=== PATIENT | male | born 1985 | race Caucasian/White ===

== ENCOUNTER 2016-09-14 15:34 | Emergency (ER) | payer OTHER ==
[~2016-09-14] VITALS: Ht 170.2 cm; Wt 65.0 kg
[~2016-09-14 15:34] MED LIST: CELE200C PO
[2016-09-14 15:37] VITALS: BP 123/72; PULSE 75; RESP 14; TEMP 98.5; O2SAT 99
--- NOTE | 2016-09-14 15:50 | PD ---
Physical Exam Time Seen by Provider: 15:49 Narrative 31yo M c/o rash x2 days. Malachi fever, vomiting. VS reviewed. Patient seen in triage. Awaiting bed placement. Data Data Last Documented VS Vital Signs Date Time Temp Pulse Resp B/P Pulse Ox O2 Delivery O2 Flow Rate FiO2 09/14/16 15:37 98.5 75 14 123/72 99 MDM Supervised Visit with RAFY: Josseline Ashley September 14, 2016 15:50
--- NOTE | 2016-09-14 17:30 | PD ---
HPI . skin rash for quite some time Chief Complaint: Skin Problem Time Seen by Provider: 17:30 Travel History International Travel<30 days: No Contact w/Intl Traveler<30days: No Traveled to known affect area: No History of Present Illness HPI 31-year-old male here with complaints of skin rash for several months to years. Patient says that he intermittently contracts impetigo and he has been treated and has not improved. He was last here in 2016, he tells me that he has since gone to another hospital twice. He says that he was treated by a "retard," and the rash keeps coming back especially after having rough sex. He admits to intermittent itching and says the lesions crust over. He denies any fever or chills. He says he has paid this hospital $900 and he needs to be fixed. He has failed bactrim and doxy. He is accompanied by his significant other. PFSH Past Medical History Hx Anticoagulant Therapy: No Asthma: Yes Cardiovascular Problems: No Chemotherapy: No Cerebrovascular Accident: No Diabetes: No Respiratory: No Social History Alcohol Use: Yes (occassionally) Tobacco Use: No Substance Use: Yes (jean pierre 30mg x2 ; on methadone now) Allergies-Medications (Allergen,Severity, Reaction): Coded Allergies: No Known Allergies (Unverified , 12/31/15) Reported Meds & Prescriptions Reported Meds & Active Scripts Active Bactroban Topical (Mupirocin) 2% Oint 1 Appl TOPICAL BID 5 Days Clindamycin (Clindamycin HCl) 300 Mg Cap 300 Mg PO TID Celebrex (Celecoxib) 200 Mg Cap 200 Mg PO DAILY Review of Systems General / Constitutional: No: Fever Eyes: No: Visual changes HENT: No: Headaches Cardiovascular: No: Chest Pain or Discomfort Respiratory: No: Shortness of Breath Gastrointestinal: No: Abdominal Pain Genitourinary: No: Dysuria Musculoskeletal: No: Pain Skin: Positive Rash, Positive Itching Neurologic: No: Weakness Psychiatric: No: Depression Endocrine: No: Polydipsia Hematologic/Lymphatic: No: Easy Bruising Physical Exam Narrative GENERAL: AAO x 3, no acute distress, Well-nourished, well-developed patient. SKIN: Warm and dry. No visible rashes or bruising. papule scattered on body, left arm > Right, small papules on face, small yellow crust on lesion on face, papules are erythematous, no evidence of abscess formation HEAD: Normocephalic and atraumatic. EYES: No scleral icterus. No injection or drainage. ENT: No nasal drainage noted. Mucous membranes pink. Airway patent. NECK: Supple, trachea midline. No JVD. CARDIOVASCULAR: Regular rate and rhythm without murmurs, gallops, or rubs. RESPIRATORY: Breath sounds equal bilaterally. No accessory muscle use. No rhonchi or rales. GASTROINTESTINAL: Visual inspection normal EXTREMITIES: No cyanosis or edema. BACK: Nontender without obvious deformity. No CVA tenderness. PSYCH: AAO x 3, normal affect. Data Data Last Documented VS Vital Signs Date Time Temp Pulse Resp B/P Pulse Ox O2 Delivery O2 Flow Rate FiO2 09/14/16 15:37 98.5 75 14 123/72 99 MDM Medical Decision Making Medical Screen Exam Complete: Yes Emergency Medical Condition: Yes Medical Record Reviewed: Yes Differential Diagnosis Impetigo, erysipelas, less likely abscess Narrative Course 31-year-old male here with complaints of skin rash for several months to years. Patient says that he intermittently contracts impetigo and he has been treated and has not improved. He was last here in 2016, he tells me that he has since gone to another hospital twice. He says that he was treated by a "retard," and the rash keeps coming back especially after having rough sex. He admits to intermittent itching and says the lesions crust over. He denies any fever or chills. He says he has paid this hospital $900 and he needs to be fixed. He has failed bactrim and doxy. He is accompanied by his significant other. Patient seen and examined. He appears to have impetigo. I will go ahead and treat him with clindamycin as he has already failed doxycycline and Bactrim. I have provided him with Bactroban as he requested. I've advised him that ultimately he will need to see a catering driver for skin biopsy for definitive diagnosis. Patient verbalized understanding of instructions, questions were answered, and thanked me for their care. I advised them if their condition worsens, please return to the nearest emergency room for further care. Diagnosis Primary Impression: Impetigo Referrals: Plant Operations Engineer Patient Instructions: General Instructions Additional Instructions: As we discussed, you need to see a catering driver for further recommendations. Med/Other Pt SpecificInfo: Prescription(s) given Scripts Mupirocin Topical (Bactroban Topical)2% Oint1 Appl TOPICAL BID 5 Days Ref 0 Prov:Maegan Melendez DO 09/14/16 Clindamycin 300 Mg [id number] Mg PO TID #21 CAP Prov:Maegan eMlendez DO 09/14/16 Disposition: 01 DISCHARGE HOME Condition: Stable Alexandria Devine September 14, 2016 17:30
[2016-09-14] MEDS ORDERED: CLIN1CAP6 PO (17:38)
[2016-09-14] MEDS ORDERED: BACT2OIN TOPICAL (17:38)
== END 2016-09-14 17:54 | disposition home or self-care (01) ==
LOC: NEPK 15:34
DX: L01.00 Impetigo, unspecified (principal)
CPT/HCPCS: 99282

== ENCOUNTER 2017-10-05 12:30 | Inpatient (IN) | payer OTHER ==
[~2017-10-05] VITALS: Ht 170.2 cm; Wt 59.6 kg
[2017-10-05] VITALS (7 sets, daily range): BP systolic 94–145; BP diastolic 51–88; PULSE 50–72; RESP 16–19; TEMP 97.4–97.7; O2SAT 96–100
[~2017-10-05 12:30] MED LIST changes: +BACT2OIN TOPICAL; +CLIN300C5 PO
[2017-10-05] MEDS ORDERED: LORazepam 2 MG/ML VIAL IV PUSH ONE ×2 (12:45→14:00)
[2017-10-05] MEDS ORDERED: SODIUM CHLOR 0.9% 1000 ML INJ 1,000 ML IV ONE ×2 (12:45)
[2017-10-05] MEDS ORDERED: HALOPERIDOL LACTATE 5 MG/ML AMP IV ONE (12:45)
--- NOTE | 2017-10-05 12:45 | PD ---
HPI Chief Complaint: OD/ Ingestion Time Seen by Provider: 12:37 Travel History International Travel<30 days: No Contact w/Intl Traveler<30days: No Traveled to known affect area: No History of Present Illness HPI Per EMS patient is known heroin user, however today the call was for altered mental status/strange behavior, called in by girlfriend. Girlfriend admits that he has been using drugs, and that he has lost a lot of weight over the past week or so. No known drug allergy according to chart Past medical history significant for asthma depression anxiety, previous Michelle and methadone USE PFSH Past Medical History Hx Anticoagulant Therapy: No Asthma: Yes Cardiovascular Problems: No Chemotherapy: No Cerebrovascular Accident: No Diabetes: No Respiratory: No Social History Alcohol Use: Yes (occassionally) Tobacco Use: No Substance Use: Yes (jean pierre 30mg x2 ; on methadone now) Allergies-Medications (Allergen,Severity, Reaction): Coded Allergies: No Known Allergies (Unverified , 12/31/15) Reported Meds & Prescriptions Reported Meds & Active Scripts Active Bactroban Topical (Mupirocin) 2% Oint 1 Appl TOPICAL BID 5 Days Clindamycin (Clindamycin HCl) 300 Mg Cap 300 Mg PO TID Celebrex (Celecoxib) 200 Mg Cap 200 Mg PO DAILY Review of Systems ROS Limitations: Altered Mental Status General / Constitutional: No: Fever Eyes: No: Visual changes HENT: No: Headaches Cardiovascular: No: Chest Pain or Discomfort Respiratory: No: Shortness of Breath Gastrointestinal: No: Abdominal Pain Genitourinary: No: Dysuria Musculoskeletal: No: Pain Skin: No Rash Neurologic: No: Weakness Psychiatric: No: Depression Endocrine: No: Polydipsia Hematologic/Lymphatic: No: Easy Bruising Physical Exam Exam Limitations: Altered Mental Status Narrative GENERAL: SKIN: Warm and dry. HEAD: Atraumatic. Normocephalic. EYES: Pupils equal and round. No scleral icterus. No injection or drainage. ENT: No nasal bleeding or discharge. Mucous membranes pink and moist. NECK: Trachea midline. No JVD. CARDIOVASCULAR: Regular rate and rhythm. RESPIRATORY: No accessory muscle use. Clear to auscultation. Breath sounds equal bilaterally. GASTROINTESTINAL: Abdomen soft, non-tender, nondistended. Hepatic and splenic margins not palpable. MUSCULOSKELETAL: Extremities without clubbing, cyanosis, or edema. No obvious deformities. NEUROLOGICAL: Awake , CONFUSED, KEEPS SPONTANEOUSLY PULLING AND PUSHING AWAY, 5/ 5 STRENGTH ALL EXTREMITIES PSYCHIATRIC: Appropriate mood and affect; insight and judgment normal. Data Data Last Documented VS Vital Signs Date Time Temp Pulse Resp B/P (MAP) Pulse Ox O2 Delivery O2 Flow Rate FiO2 10/05/17 12:46 50 16 131/58 (82) 97 Room Air 10/05/17 12:33 97.4 Orders Orders Complete Blood Count With Diff (10/05/17 12:37) Comprehensive Metabolic Panel (10/05/17 12:37) Creatine Kinase (Cpk) (10/05/17 12:37) Ckmb (Isoenzyme) Profile (10/05/17 12:37) Troponin I (10/05/17 12:37) Prothrombin Time / Inr (Pt) (10/05/17 12:37) Act Partial Throm Time (Ptt) (10/05/17 12:37) Lipase (10/05/17 12:37) Urinalysis - C+S If Indicated (10/05/17 12:37) Thyroid Stimulating Hormone (10/05/17 12:37) Chest, Single Ap (10/05/17 12:37) Ct Brain W/O Iv Contrast(Rout) (10/05/17 12:37) Iv Access Insert/Monitor (10/05/17 12:37) Ecg Monitoring (10/05/17 12:37) Oximetry (10/05/17 12:37) Urinary Catheter Insert/Apply (10/05/17 12:37) Drug Screen, Random Urine (10/05/17 12:37) Alcohol (Ethanol) (10/05/17 12:37) Salicylates (Aspirin) (10/05/17 12:37) Tylenol (Acetaminophen) (10/05/17 12:37) Sodium Chlor 0.9% 1000 Ml Inj (Ns 1000 M (10/05/17 12:45) Sodium Chlor 0.9% 1000 Ml Inj (Ns 1000 M (10/05/17 12:45) Haloperidol Inj (Haldol Inj) (10/05/17 12:45) Lorazepam Inj (Ativan Inj) (10/05/17 12:45) Lactic Acid Sepsis Protocol (10/05/17 13:19) Blood Culture (10/05/17 13:19) Lorazepam Inj (Ativan Inj) (10/05/17 14:00) Etomidate Inj (Amidate Inj) (10/05/17 13:49) Succinylcholine Inj (Quelicin Inj) (10/05/17 13:50) Dextrose 50% In Regla (Syr) Inj (D50w (Syr (10/05/17 14:00) Dextrose 50% In Regla (Syr) Inj (D50w (Syr (10/05/17 13:54) CKMB (10/05/17 12:58) CKMB% (10/05/17 12:58) Electrocardiogram (10/05/17 12:45) Labs Laboratory Tests Test 10/05/17 12:58 10/05/17 13:10 White Blood Count 8.7 TH/MM3 Red Blood Count 5.69 MIL/MM3 Hemoglobin 15.2 GM/DL Hematocrit 46.8 % Mean Corpuscular Volume 82.3 FL Mean Corpuscular Hemoglobin 26.8 PG Mean Corpuscular Hemoglobin Concent 32.6 % Red Cell Distribution Width 14.6 % Platelet Count 307 TH/MM3 Mean Platelet Volume 7.6 FL Neutrophils (%) (Auto) 78.8 % Lymphocytes (%) (Auto) 15.0 % Monocytes (%) (Auto) 5.9 % Eosinophils (%) (Auto) 0.1 % Basophils (%) (Auto) 0.2 % Neutrophils # (Auto) 6.9 TH/MM3 Lymphocytes # (Auto) 1.3 TH/MM3 Monocytes # (Auto) 0.5 TH/MM3 Eosinophils # (Auto) 0.0 TH/MM3 Basophils # (Auto) 0.0 TH/MM3 CBC Comment DIFF FINAL Differential Comment Prothrombin Time 11.4 SEC Prothromb Time International Ratio 1.1 RATIO Activated Partial Thromboplast Time 22.9 SEC Blood Urea Nitrogen 8 MG/DL Creatinine 0.91 MG/DL Random Glucose 12 MG/DL Total Protein 8.0 GM/DL Albumin 4.4 GM/DL Calcium Level 9.1 MG/DL Alkaline Phosphatase 89 U/L Aspartate Amino Transf (AST/SGOT) 32 U/L Alanine Aminotransferase (ALT/SGPT) 43 U/L Total Bilirubin 0.4 MG/DL Sodium Level 146 MEQ/L Potassium Level 3.3 MEQ/L Chloride Level 105 MEQ/L Carbon Dioxide Level 27.8 MEQ/L Anion Gap 13 MEQ/L Estimat Glomerular Filtration Rate 97 ML/MIN Total Creatine Kinase 221 U/L Troponin I LESS THAN 0.02 NG/ML Lipase 218 U/L Thyroid Stimulating Hormone 3rd Gen 0.549 uIU/ML Salicylates Level LESS THAN 1.7 MG/DL Acetaminophen Level LESS THAN 2.0 MCG/ML Ethyl Alcohol Level LESS THAN 3 MG/DL Urine Color YELLOW Urine Turbidity HAZY Urine pH 7.0 Urine Specific [place] 1.020 Urine Protein TRACE mg/dL Urine Glucose (UA) NEG mg/dL Urine Ketones NEG mg/dL Urine Occult Blood NEG Urine Nitrite NEG Urine Bilirubin NEG Urine Urobilinogen 2.0 MG/DL Urine Leukocyte Esterase NEG Urine RBC 1 /hpf Urine WBC 1 /hpf Urine Mucus FEW /lpf Microscopic Urinalysis Comment CULT NOT INDICATED Urine Opiates Screen NEG Urine Barbiturates Screen NEG Urine Amphetamines Screen POS Urine Benzodiazepines Screen NEG Urine Cocaine Screen POS Urine Cannabinoids Screen NEG MDM Medical Decision Making Medical Screen Exam Complete: Yes Emergency Medical Condition: Yes Medical Record Reviewed: Yes Interpretation(s) EKG shows sinus bradycardia, 52 bpm, left atrial enlargement, frequent PACs, no ST elevation ID pattern Differential Diagnosis Intracranial hemorrhage versus substance abuse related versus rhabdo versus withdrawal versus electrolyte imbalance versus STEMI Narrative Course CBC does not show any leukocytosis, anemia or left shift, he also has normal platelet count Coagulation profile is within normal limits UA does not show any evidence of UTI nor any suggestion of rhabdo Toxicologies positive for amphetamines and cocaine only Electrolytes are all within normal limits with the exception of potassium 3.3, and a random glucose 12 First set of cardiac enzymes are negative Normal liver and pancreatic enzymes Normal TSH screening test Chest x-ray read by radiologist as no acute cardiopulmonary disease CT head read by radiologist as motion artifact otherwise negative Diagnosis Primary Impression: Altered mental status Additional Impressions: Hypoglycemic Polysubstance abuse Admitting Information Admitting Physician Requests: Admit Julio César Rosas MD October 05, 2017 12:45
--- NOTE | 2017-10-05 13:19 | RADRPT ---
EXAM DATE: 10/05/2017 1:14 PM EDT AGE/SEX: 32 years / Male INDICATIONS: Altered mental status, brought in by evac. CLINICAL DATA: This is the patient's initial encounter. Patient reports that signs and symptoms have been present for 1 day and indicates a pain score of Nonresponsive. MEDICAL/SURGICAL HISTORY: None. None. COMPARISON: No prior [facility] exams available for comparison. FINDINGS: A single AP view of the chest demonstrates the lungs to be symmetrically aerated without evidence of mass, infiltrate or effusion. The cardiomediastinal contours are unremarkable. Osseous structures a re intact. CONCLUSION: 1. No acute cardiopulmonary disease. Electronically signed by: James Gayle MD 10/05/2017 1:17 PM EDT
[2017-10-05 13:27] LABS: AUTOMATED NEUTROPHIL # 6.9 TH/MM3 (1.8-7.7); BASOPHIL % 0.2 % (0.0-2.0); EOSINOPHIL % 0.1 % (0.0-4.0); HEMATOCRIT 46.8 % (39.0-51.0); HEMOGLOBIN 15.2 GM/DL (13.0-17.0); LYMPHOCYTE # 1.3 TH/MM3 (1.0-4.8); MEAN CELL VOLUME 82.3 FL (80.0-100.0); MEAN CORPUSCULAR HEMOGLOBIN 26.8 PG (27.0-34.0); MEAN CORPUSCULAR HGB CONC 32.6 % (32.0-36.0); MEAN PLATELET VOLUME 7.6 FL (7.0-11.0); MONO % 5.9 % (0.0-8.0); MONOCYTE # 0.5 TH/MM3 (0-0.9); NEUT % 78.8 % (16.0-70.0); PLATELET COUNT 307 TH/MM3 (150-450); RED BLOOD COUNT 5.69 MIL/MM3 (4.50-5.90); RED CELL DISTRIBUTION WIDTH 14.6 % (11.6-17.2); WHITE BLOOD COUNT 8.7 TH/MM3 (4.0-11.0)
[2017-10-05 13:29] LABS: BILIRUBIN, URINE NEG (NEG); BLOOD, URINE NEG (NEG); GLUCOSE,URINE NEG (NEG); KETONE, URINE NEG (NEG); MUCUS URINE FEW /lpf (OCC); NITRITE,URINE NEG (NEG); URINE COLOR YELLOW (YELLW/STRAW); URINE LEUKOCYTE ESTERASE NEG (NEG)
[2017-10-05 13:33] LABS: INTERNATIONAL NORMALIZED RATIO 1.1 RATIO; PROTHROMBIN TIME - PATIENT 11.4 SEC (9.8-11.6)
[2017-10-05] MEDS ORDERED: ETOMIDATE 40 MG/20 ML VIAL ONE (13:49)
[2017-10-05] MEDS ORDERED: SUCCINYLCHOLINE CHLORIDE 200 MG/10 ML VIAL ONE (13:50)
--- NOTE | 2017-10-05 13:50 | RADRPT ---
EXAM DATE: 10/05/2017 1:48 PM EDT AGE/SEX: 32 years / Male INDICATIONS: Altered mental status. Possible overdose. CLINICAL DATA: This is the patient's initial encounter. Patient reports that signs and symptoms have been present for 1 day and indicates a pain score of 0/10. MEDICAL/SURGICAL HISTORY: Asthma. None. RADIATION DOSE: 30.61 CTDI (mGy) COMPARISON: No prior [facility] exams available for comparison. TECHNIQUE: CT of the head without contrast. Using automated exposure control and adjustment of the mA and/or kV according to patient size, radiation dose was kept as low as reasonably achievable to ob tain optimal diagnostic quality images. Moderate motion artifact is present. FINDINGS: Cerebrum: The ventricles are normal for age. No evidence of midline shift, mass lesion, hemorrhage or acute infarction. No extraaxial fluid collections are seen. Posterior Fossa: The cerebellum and brainstem are intact. The 4th ventricle is midline. The cerebe llopontine angle is unremarkable. Extracranial: The visualized portion of the orbits is intact. Skull: The calvaria is intact. No evidence of skull fracture. CONCLUSION: 1. Motion otherwise negative. Electronically signed by: Meir Leavitt MD 10/05/2017 1:49 PM EDT
[2017-10-05] MEDS ORDERED: DEXTROSE 50% IN WATER 50 ML SYRINGE ONE (13:54)
[2017-10-05 13:59] LABS: ACETAMINOPHEN LESS THAN 2.0 MCG/ML (10.0-30.0); ALBUMIN 4.4 GM/DL (3.4-5.0); ALKALINE PHOSPHATASE 89 U/L (45-117); ALT (GPT) 43 U/L (12-78); AST (GOT) 32 U/L (15-37); BICARBONATE 27.8 MEQ/L (21.0-32.0); BLOOD UREA NITROGEN 8 MG/DL (7-18); CALCIUM 9.1 MG/DL (8.5-10.1); CHLORIDE 105 MEQ/L (98-107); CREATININE 0.91 MG/DL (0.60-1.30); GLOMERULAR FILTRATION RATE 97 ML/MIN (>89); SODIUM (NA) 146 MEQ/L (136-145); TOTAL BILIRUBIN ADULT 0.4 MG/DL (0.2-1.0); TROPONIN I LESS THAN 0.02 NG/ML (0.02-0.05)
[2017-10-05 14:00] LABS: GLUCOSE,RANDOM 12 MG/DL (74-106)
[2017-10-05] MEDS ORDERED: DEXTROSE 50% IN WATER 50 ML SYRINGE IV PUSH ONE ×3 (14:00→17:00)
[2017-10-05 15:16] LABS: LACTIC ACID SEPSIS PROTOCOL 6.5 mmol/L (0.4-2.0)
[2017-10-05] MEDS ORDERED: LACTULOSE SYRUP 20 GM/30 ML CUP PO PRN (15:30)
[2017-10-05] MEDS ORDERED: SODIUM CHLORIDE 23.4% INJ 154 MEQ in DEXTROSE 10% INJ 1,000 ML IV SCH (15:30)
[2017-10-05] MEDS ORDERED: DEXTROSE 50% IN WATER 50 ML VIAL(D50) IV PUSH PRN (15:30)
[2017-10-05] MEDS ORDERED: THIAMINE HCL 200 MG/2 ML VIAL IM ONE (15:30)
[2017-10-05] MEDS ORDERED: NALOXONE HCL 0.4 MG/ML AMP IV PUSH PRN (15:30)
[2017-10-05] MEDS ORDERED: MAGNESIUM HYDROXIDE SUSP 30 ML CUP PO PRN (15:30)
[2017-10-05] MEDS ORDERED: BISACODYL 10 MG SUPP RECTAL PRN (15:30)
[2017-10-05] MEDS ORDERED: GLUCAGON 1 MG/ML VIAL IM PRN ×2 (15:30→17:45)
[2017-10-05] MEDS ORDERED: SODIUM CHLORIDE 0.9% FLUSH 10 ML FLUSH IV FLUSH PRN (15:30)
[2017-10-05] MEDS ORDERED: SENNOSIDES 8.6 MG TAB PO PRN (15:30)
[2017-10-05] MEDS ORDERED: DEXT 5%-NACL 0.45% 1000 ML INJ 1,000 ML IV SCH (16:00)
[2017-10-05] MEDS: SODIUM CHLORIDE 23.4% INJ 77 MEQ in DEXTROSE 10% INJ 1,000 ML IV SCH ×2 (17:00→17:05)
[2017-10-05] MEDS ORDERED: THIAMINE INJ 500 MG in SODIUM CHLOR 0.9% 250 ML INJ 250 ML IV ONE (17:00)
--- NOTE | 2017-10-05 17:45 | MB ---
cc: Kori Philip MD DATE: 10/05/2017 REASON FOR CONSULTATION: Possible seizure. HISTORY OF PRESENT ILLNESS: The patient is admitted with a known history of heroin use, was brought in for altered mental status, strange behavior by girlfriend. He has a positive UDS for amphetamines and cocaine. He was found also to have a history of prior use of suzan and methadone use. Past medical history of asthma, depression and anxiety as well. Told by nursing that his blood glucose levels have been going down into mid-20s and is now on a glucose drip. The patient is sleepy, arousable apparently had what looked like a possible seizure versus due to hypoglycemia, but he is sleepy, arousable now, wondering where he is at. PHYSICAL EXAMINATION: VITAL SIGNS: Temperature is 97.4, pulse 70, respiratory rate 16, blood pressure was 145/65, saturating 100% on room air. NEUROLOGIC: Sleepy, arousable. Pupils reactive. Face is symmetrical. Speech is intact. Motor barnard, he has no lateralizing deficits. Normal reflexes. Cannot assess cerebellar and gait. He is in restraints. LABORATORY DATA: Reviewed. His CBC is really unremarkable. Coag panel, PTT 22.9. Chemistry: Sodium 146, potassium 3.3, glucose was 12. Lactic acid 6.5. GFR is normal 97. TSH 0.549. Tox screen positive for amphetamines and for cocaine. Urine hazy. IMAGING: Chest x-ray, no acute disease. Head CT negative. IMPRESSION: 1. Drug abuse. 2. Hypoglycemia. 3. Questionable seizure due to hypoglycemia and/or drugs. PLAN: Recommend continuing to monitor glucose, monitoring his fingersticks at least hourly for now, until he reaches a level plateau. Watch for any seizures. We will get an EEG. I would not put him on any antiepileptic medication. Otherwise, no other testing for Neurology. Continue per primary team. I will go ahead and order an EEG. MD ROEL Live/RAFAEL , 04:21 PM , 05:43 PM
--- NOTE | 2017-10-05 18:05 | HHI.HP ---
HPI Service [facility] Primary Care Physician No Primary Care Physician Admission Diagnosis AMS Diagnoses: Travel History International Travel<30 Days: No (per g/f @ bedside) Contact w/Intl Traveler <30 Da: No Traveled to Known Affected Are: No History of Present Illness 32-year-old male with a history of heroine use, who is brought in by his girlfriend who is not present on my exam. Patient is somnolent, arousable, which point he will pull extremely hard against restraints. Patient opens eyes , is either unable or unwilling to answer questions. History is obtained from chart and discussion with ER physician. Patient apparently had a tonic-clonic seizure in the ER which has resolved. He is also found to be hypoglycemic with a glucose of 12, which has improved to 125 after 1 amp of D50. Per ER report, girlfriend reported that patient has been going to a meth house recently, and has been talking differently, however no reports of focal signs or symptoms. Review of Systems Except as stated in HPI: all other systems reviewed are Neg Past Family Social History Past Medical History History of heroine abuse Past Surgical History Ankle surgery reportedly Allergies: Coded Allergies: No Known Allergies (Unverified Allergy, Unknown, 10/05/17) Family History Family history unable to be obtained Social History Reported to be an occasional drinker, nonsmoker. Reportedly on methadone, however opioids are negative on urine. Amphetamine and cocaine positive. Physical Exam Vital Signs Vital Signs Date Time Temp Pulse Resp B/P (MAP) Pulse Ox O2 Delivery O2 Flow Rate FiO2 10/05/17 17:22 50 14 137/88 (104) 98 10/05/17 15:55 100 21 10/05/17 14:41 70 16 145/65 (91) 96 Room Air 10/05/17 12:46 50 16 131/58 (82) 97 Room Air 10/05/17 12:41 98 10/05/17 12:33 97.4 72 16 131/58 (82) 99 Physical Exam GENERAL: This is a well-nourished, well-developed patient, wakes to verbal stimulation SKIN: No rashes, ecchymoses or lesions. Cool and dry. HEAD: Atraumatic. Normocephalic. No temporal or scalp tenderness. EYES: Pupils equal round and reactive. Extraocular motions intact. No scleral icterus. No injection or drainage. ENT: Nose without bleeding, purulent drainage or septal hematoma. Throat without erythema, tonsillar hypertrophy or exudate. Uvula midline. Airway patent. NECK: Trachea midline. No JVD or lymphadenopathy. Supple, nontender, no meningeal signs. CARDIOVASCULAR: Regular rate and rhythm without murmurs, gallops, or rubs. RESPIRATORY: Clear to auscultation. Breath sounds equal bilaterally. No wheezes , rales, or rhonchi. GASTROINTESTINAL: Abdomen soft, non-tender, nondistended. No hepato-splenomegaly , or palpable masses. No guarding. MUSCULOSKELETAL: Extremities without clubbing, cyanosis, or edema. No joint tenderness, effusion, or edema noted. No calf tenderness. Negative Homans sign bilaterally. NEUROLOGICAL: somnolent, opens eyes for exam. Cranial nerves II through XII intact. Motor and sensory grossly within normal limits. moves all extremities. Laboratory Laboratory Tests Test 10/05/17 12:58 10/05/17 13:10 10/05/17 14:10 10/05/17 15:36 White Blood Count 8.7 Red Blood Count 5.69 Hemoglobin 15.2 Hematocrit 46.8 Mean Corpuscular Volume 82.3 Mean Corpuscular Hemoglobin 26.8 Mean Corpuscular Hemoglobin Concent 32.6 Red Cell Distribution Width 14.6 Platelet Count 307 Mean Platelet Volume 7.6 Neutrophils (%) (Auto) 78.8 Lymphocytes (%) (Auto) 15.0 Monocytes (%) (Auto) 5.9 Eosinophils (%) (Auto) 0.1 Basophils (%) (Auto) 0.2 Neutrophils # (Auto) 6.9 Lymphocytes # (Auto) 1.3 Monocytes # (Auto) 0.5 Eosinophils # (Auto) 0.0 Basophils # (Auto) 0.0 CBC Comment DIFF FINAL Differential Comment Prothrombin Time 11.4 Prothromb Time International Ratio 1.1 Activated Partial Thromboplast Time 22.9 Blood Urea Nitrogen 8 Creatinine 0.91 Random Glucose 12 Total Protein 8.0 Albumin 4.4 Calcium Level 9.1 Alkaline Phosphatase 89 Aspartate Amino Transf (AST/SGOT) 32 Alanine Aminotransferase (ALT/SGPT) 43 Total Bilirubin 0.4 Sodium Level 146 Potassium Level 3.3 Chloride Level 105 Carbon Dioxide Level 27.8 Anion Gap 13 Estimat Glomerular Filtration Rate 97 Total Creatine Kinase 221 Creatine Kinase MB 2.1 Troponin I LESS THAN 0.02 Lipase 218 Thyroid Stimulating Hormone 3rd Gen 0.549 Salicylates Level LESS THAN 1.7 Acetaminophen Level LESS THAN 2.0 Ethyl Alcohol Level LESS THAN 3 Urine Color YELLOW Urine Turbidity HAZY Urine pH 7.0 Urine Specific [place] 1.020 Urine Protein TRACE Urine Glucose (UA) NEG Urine Ketones NEG Urine Occult Blood NEG Urine Nitrite NEG Urine Bilirubin NEG Urine Urobilinogen 2.0 Urine Leukocyte Esterase NEG Urine RBC 1 Urine WBC 1 Urine Mucus FEW Microscopic Urinalysis Comment CULT NOT INDICATED Urine Opiates Screen NEG Urine Barbiturates Screen NEG Urine Amphetamines Screen POS Urine Benzodiazepines Screen NEG Urine Cocaine Screen POS Urine Cannabinoids Screen NEG Lactic Acid Level 6.5 Blood Gas Puncture Site RT BRACHIAL Blood Gas Patient Temperature 98.6 Blood Gas HCO3 23 Blood Gas Base Excess -1.3 Blood Gas Oxygen Saturation 96 Arterial Blood pH 7.39 Arterial Blood Partial Pressure CO2 39 Arterial Blood Partial Pressure O2 104 Arterial Blood Oxygen Content 17.3 Arterial Blood Carboxyhemoglobin 1.7 Arterial Blood Methemoglobin 0.6 Blood Gas Hemoglobin 12.7 Blood Gas Inspired Oxygen 21 Date/Time Source Procedure Growth Status 10/05/17 14:00 Blood Peripheral Aerobic Blood Culture Pending Received 10/05/17 14:00 Blood Peripheral Anaerobic Blood Culture Pending Received Result Diagram: 10/05/17 1258 10/05/17 1258 Caprini VTE Risk Assessment Caprini VTE Risk Assessment: No/Low Risk (score <= 1) Caprini Risk Assessment Model Point Value = 1 Point Value = 2 Point Value = 3 Point Value = 5 Age 41-60 Minor surgery BMI > 25 kg/m2 Swollen legs Varicose veins or History of unexplained or recurrent spontaneous Oral contraceptives or hormone replacement Sepsis (< 1 month) Serious lung disease, including pneumonia (< 1 month) Abnormal pulmonary function Acute myocardial infarction Congestive heart failure (< 1 month) History of inflammatory bowel disease Medical patient at bed rest Age 61-74 Arthroscopic surgery Major open surgery (> 45 min) Laparoscopic surgery (> 45 min) Malignancy Confined to bed (> 72 hours) Immobilizing plaster cast Central venous access Age >= 75 History of VTE Family history of VTE Factor V Leiden Prothrombin [id number] Lupus anticoagulant Anticardiolipin antibodies Elevated serum homocysteine Heparin-induced thrombocytopenia Other congenital or acquired thrombophilia Stroke (< 1 month) Elective arthroplasty Hip, pelvis, or leg fracture Acute spinal cord injury (< 1 month) Prophylaxis Regimen Total Risk Factor Score Risk Level Prophylaxis Regimen 0-1 Low Early ambulation 2 Moderate Order ONE of the following: *Sequential Compression Device (SCD) *Heparin 5000 units SQ BID 3-4 Higher Order ONE of the following medications: *Heparin 5000 units SQ TID *Enoxaparin/Lovenox 40 mg SQ daily (WT < 150 kg, CrCl > 30 mL/min) *Enoxaparin/Lovenox 30 mg SQ daily (WT < 150 kg, CrCl > 10-29 mL/min) *Enoxaparin/Lovenox 30 mg SQ BID (WT < 150 kg, CrCl > 30 mL/min) AND/OR *Sequential Compression Device (SCD) 5 or more Highest Order ONE of the following medications: *Heparin 5000 units SQ TID (Preferred with Epidurals) *Enoxaparin/Lovenox 40 mg SQ daily (WT < 150 kg, CrCl > 30 mL/min) *Enoxaparin/Lovenox 30 mg SQ daily (WT < 150 kg, CrCl > 10-29 mL/min) *Enoxaparin/Lovenox 30 mg SQ BID (WT < 150 kg, CrCl > 30 mL/min) AND *Sequential Compression Device (SCD) Assessment and Plan Assessment and Plan //Encephalopathy. -CT brain on admission negative Possibly secondary to hypoglycemia versus drug overdose. = Every 4 hours neuro checks. Neurology consult. //Suspected drug overdose -Amphetamines and cocaine positive. Suspect PCP = Continue to monitor on telemetry. //Acute severe Hypoglycemia = Glucose of 12 on initial labs. Improved to 125 per ER continue D10 half- normal saline drip. Hypoglycemia protocol = Check stat cortisol. TSH within normal limits. //Seizure, acute Tonic-clonic seizure reported. = Likely secondary to stimulants. EEG ordered. Neuro consult //Lactic acidosis = Lactate 6.5 after seizure. ABG after seizure unremarkable. Likely secondary to seizure. A recheck stat. //Hypernatremia. 146. Mild. Likely secondary to dehydration. Hypertonic fluids. Monitor. //Hypokalemia. 3.3. Replace monitor. Discussed Condition With patient, nurse, ED physician. Physician Certification 2 Midnight Certification Type: Admission for Inpatient Services Order for Inpatient Services The services are ordered in accordance with Medicare regulations or non- Medicare payer requirements, as applicable. In the case of services not specified as inpatient-only, they are appropriately provided as inpatient services in accordance with the 2-midnight benchmark. Estimated LOS (days): 3 days is the estimated time the patient will need to remain in the hospital, assuming treatment plan goals are met and no additional complications. Post-Hospital Plan: [facility] Keo Herrera MD October 05, 2017 18:05
[2017-10-05] MEDS: POTASSIUM CHLOR 10 MEQ PREMIX 100 ML IV SCH ×5 (18:47→22:00)
[2017-10-05] MEDS: DEXTROSE 50% IN WATER 50 ML VIAL(D50) IV PUSH PRN ×2 (19:21→22:54)
[2017-10-05] MEDS: SODIUM CHLORIDE 0.9% FLUSH 10 ML FLUSH IV FLUSH SCH (21:00)
[2017-10-06] VITALS (10 sets, daily range): BP systolic 94–125; BP diastolic 50–85; PULSE 52–84; RESP 13–26; TEMP 97.8–98.7; O2SAT 90–100
[2017-10-06] MEDS ORDERED: HALOPERIDOL LACTATE 5 MG/ML AMP IV PUSH ONE (01:00)
[2017-10-06] MEDS: SODIUM CHLORIDE 23.4% INJ 77 MEQ in DEXTROSE 10% INJ 1,000 ML IV SCH ×2 (05:43→18:13)
[2017-10-06 06:07] LABS: AUTOMATED NEUTROPHIL # 3.8 TH/MM3 (1.8-7.7); BASOPHIL % 0.2 % (0.0-2.0); EOSINOPHIL % 0.4 % (0.0-4.0); HEMATOCRIT 41.8 % (39.0-51.0); HEMOGLOBIN 13.9 GM/DL (13.0-17.0); LYMPH % 27.9 % (9.0-44.0); LYMPHOCYTE # 1.7 TH/MM3 (1.0-4.8); MEAN CELL VOLUME 81.6 FL (80.0-100.0); MEAN CORPUSCULAR HEMOGLOBIN 27.1 PG (27.0-34.0); MEAN CORPUSCULAR HGB CONC 33.2 % (32.0-36.0); MEAN PLATELET VOLUME 7.7 FL (7.0-11.0); MONO % 8.2 % (0.0-8.0); MONOCYTE # 0.5 TH/MM3 (0-0.9); NEUT % 63.3 % (16.0-70.0); PLATELET COUNT 184 TH/MM3 (150-450); RED BLOOD COUNT 5.12 MIL/MM3 (4.50-5.90); RED CELL DISTRIBUTION WIDTH 14.8 % (11.6-17.2); WHITE BLOOD COUNT 6.1 TH/MM3 (4.0-11.0)
[2017-10-06 06:41] LABS: ALBUMIN 3.4 GM/DL (3.4-5.0); ALKALINE PHOSPHATASE 70 U/L (45-117); ALT (GPT) 35 U/L (12-78); AST (GOT) 29 U/L (15-37); BICARBONATE 24.6 MEQ/L (21.0-32.0); BLOOD UREA NITROGEN 2 MG/DL (7-18); CALCIUM 7.9 MG/DL (8.5-10.1); CHLORIDE 111 MEQ/L (98-107); GLOMERULAR FILTRATION RATE 132 ML/MIN (>89); GLUCOSE,RANDOM 124 MG/DL (74-106); SODIUM (NA) 144 MEQ/L (136-145); TOTAL BILIRUBIN ADULT 0.8 MG/DL (0.2-1.0); TOTAL PROTEIN 6.3 GM/DL (6.4-8.2)
[2017-10-06] MEDS: SODIUM CHLORIDE 0.9% FLUSH 10 ML FLUSH IV FLUSH SCH ×2 (11:17→22:06)
--- NOTE | 2017-10-06 12:13 | PD.PSY.CON ---
Provisional Diagnosis Admission Date October 05, 2017 at 15:15 [place] I. Bipolar disorder, unspecified vs substance-induced mood disorder, polysubstance dependence including alcohol, amphetamines, benzodiazepines, heroin, cocaine [place] II. Deferred [place] III. Overdose [place] IV. Multiple drug use, [place] V. 45 History of Present Illness Service Psychiatry Consult Requested By Medicine Reason for Consult Suicidal attempt Primary Care Physician No Primary Care Physician HPI The patient is a 32-year-old man, domiciled with his girlfriend Garett, employed in construction, with reported psychiatric history of bipolar disorder, 1 previous psychiatric hospitalization, one suicidal attempt by hanging, polysubstance dependence including cocaine, heroin, amphetamines, benzodiazepines, alcohol, history of aggressive behavior, poor impulse control, no significant medical history, who is brought in by his girlfriend due to altered mental status. On initial medical evaluation patient was somnolent, arousable, which point he will pull extremely hard against restraints. Patient opens eyes, is either unable or unwilling to answer questions. History is obtained from chart and discussion with ER physician. Patient apparently had a tonic-clonic seizure in the ER which has resolved. He is also found to be hypoglycemic with a glucose of 12, which has improved to 125 after 1 amp of D50. Per ER report, girlfriend reported that patient has been going to a meth house recently, and has been talking differently, however no reports of focal signs or symptom the patient was admitted due to encephalopathy. CT brain on admission negative. Acute severe Hypoglycemia. Glucose of 12 on initial labs. Improved to 125 per ER continue D10 half-normal saline drip. Seizure, acute. Tonic-clonic seizure reported. Likely secondary to stimulants. EEG ordered. Neuro consult. Consulted to psychiatry due to aggressive behavior and potential suicidal intentions and overdose. On psychiatric evaluation today the patient is poorly cooperative, kind of sedated, not providing much information for the psychiatric assessment. The patient reports that he did not try to commit suicide. He says that he is doing fine. He denies suicidal and homicidal ideation, visual and auditory hallucinations at the moment. he does say that he did not overdose with suicidal intentions. His mother, Shalini Tran [phone], clarifies that the patient actually called her to say goodbye to her before overdose. She says that she is very sure that the patient took "about 30 pills of Klonopin" with multiple illegal drugs in order to commit suicide. She says that this will be the second time that the patient try to commit suicide since 2015. First time he tried to hang himself. She says that the patient has been struggling with depression, hopelessness, helplessness, and the drugs are controlling his life. She says that the patient called her yesterday telling her that he ate himself he does not believe to continue his life. She mentioned that the patient has been continuously using multiple drug "to self medicate his depression". Review of Systems Constitutional: DENIES: Diaphoretic episodes, Fatigue, Fever, Weight gain, Weight loss, Chills, Dizziness, Change in appetite, Night Sweats Endocrine: DENIES: Heat/cold intolerance, Polydipsia, Polyuria, Polyphagia Eyes: DENIES: Blurred vision, Diplopia, Eye inflammation, Eye pain, Vision loss , Photosensitivity, Double Vision Ears, nose, mouth, throat: DENIES: Tinnitus, Hearing loss, Vertigo, Nasal discharge, Oral lesions, Throat pain, Hoarseness, Ear Pain, Running Nose, Epistaxis, Sinus Pain, Toothache, Odynophagia Respiratory: DENIES: Apneas, Cough, Snoring, Wheezing, Hemoptysis, Sputum production, Shortness of breath Cardiovascular: DENIES: Chest pain, Palpitations, Syncope, Dyspnea on Exertion , PND, Lower Extremity Edema, Orthopnea, Claudication Gastrointestinal: DENIES: Abdominal pain, Black stools, Bloody stools, Constipation, Diarrhea, Nausea, Vomiting, Difficulty Swallowing, Anorexia Genitourinary: DENIES: Sexual dysfunction, Urinary frequency, Urinary incontinence, Urgency, Hematuria, Dysuria, Nocturia, Penile Discharge, Testicular Pain, Testicular Swelling Musculoskeletal: DENIES: Joint pain, Muscle aches, Stiffness, Joint Swelling, Back pain, Neck pain Integumentary: DENIES: Abnormal pigmentation, Nail changes, Pruritus, Rash Hematologic/lymphatic: DENIES: Bruising, Lymphadenopathy Immunologic/allergic: DENIES: Eczema, Urticaria Neurologic: DENIES: Abnormal gait, Headache, Localized weakness, Paresthesias, Seizures, Speech Problems, Tremor, Poor Balance Psychiatric: DENIES: Anxiety, Confusion, Mood changes, Depression, Hallucinations, Agitation, Suicidal Ideation, Homicidal Ideation, Delusions Past Family Social History Coded Allergies: No Known Allergies (Unverified Allergy, Unknown, 10/05/17) Active Scripts Mupirocin Topical (Bactroban Topical) 2% Oint, 1 APPL TOPICAL BID for Mgmt Bacterial Infection for 5 Days, TUBE 0 Refills Prov:Maegan Melendez DO 09/14/16 Clindamycin (Clindamycin) 300 Mg Cap, 300 MG PO TID for Infection, #21 CAP Prov:Maegan Melendez DO 09/14/16 Celecoxib (Celebrex) 200 Mg Cap, 200 MG PO DAILY for Inflammation, #30 CAP 0 Refills Prov:KimoDyllan DPM 11/11/15 Current Medications Medications (Trade) Dose Ordered Sig/Chrissy Route Start Time Stop Time Status Last Admin (NS Flush) 2 ml UNSCH PRN IV FLUSH 10/05/17 15:30 (NS Flush) 2 ml BID IV FLUSH 10/05/17 21:00 10/06/17 11:17 (Narcan Inj) 0.4 mg UNSCH PRN IV PUSH 10/05/17 15:30 (Milk Of Magnesia Liq) 30 ml Q12H PRN PO 10/05/17 15:30 (Senokot) 17.2 mg Q12H PRN PO 10/05/17 15:30 (Dulcolax Supp) 10 mg DAILY PRN RECTAL 10/05/17 15:30 (Lactulose Liq) 30 ml DAILY PRN PO 10/05/17 15:30 Sodium Chloride 77 meq/Dextrose 1,019.25 ml @ 85 mls/hr Q12H IV 10/05/17 17:00 10/06/17 05:43 (D50w (Vial) Inj) 50 ml UNSCH PRN IV PUSH 10/05/17 17:45 10/05/17 22:54 (Glucagon Inj) 1 mg STAT PRN IM 10/05/17 17:45 Family Psych History The patient has grandfather with bipolar disorder, sister with addiction to multiple substances Social History Patient was born and raised in [place], he lives in [place] with his girlfriend, he works in construction, his highest level of education is high school Patient's Strengths (min. 2) Family support Physical Exam Patient is a little bit sedated, somnolent, kind of distant, psychomotor retarded Vital Signs Vital Signs Date Time Temp Pulse Resp B/P (MAP) Pulse Ox O2 Delivery O2 Flow Rate FiO2 10/06/17 04:00 97.8 84 26 109/68 (82) 99 10/05/17 15:55 21 10/05/17 14:41 Room Air I/O 10/06/17 10/06/17 10/07/17 08:00 16:00 00:00 Output Total 2000 ml Balance -2000 ml Lab Results Test 10/05/17 12:58 10/05/17 13:10 10/05/17 14:10 10/05/17 15:36 White Blood Count 8.7 TH/MM3 Red Blood Count 5.69 MIL/MM3 Hemoglobin 15.2 GM/DL Hematocrit 46.8 % Mean Corpuscular Volume 82.3 FL Mean Corpuscular Hemoglobin 26.8 PG Mean Corpuscular Hemoglobin Concent 32.6 % Red Cell Distribution Width 14.6 % Platelet Count 307 TH/MM3 Mean Platelet Volume 7.6 FL Neutrophils (%) (Auto) 78.8 % Lymphocytes (%) (Auto) 15.0 % Monocytes (%) (Auto) 5.9 % Eosinophils (%) (Auto) 0.1 % Basophils (%) (Auto) 0.2 % Neutrophils # (Auto) 6.9 TH/MM3 Lymphocytes # (Auto) 1.3 TH/MM3 Monocytes # (Auto) 0.5 TH/MM3 Eosinophils # (Auto) 0.0 TH/MM3 Basophils # (Auto) 0.0 TH/MM3 CBC Comment DIFF FINAL Differential Comment Prothrombin Time 11.4 SEC Prothromb Time International Ratio 1.1 RATIO Activated Partial Thromboplast Time 22.9 SEC Blood Urea Nitrogen 8 MG/DL Creatinine 0.91 MG/DL Random Glucose 12 MG/DL Total Protein 8.0 GM/DL Albumin 4.4 GM/DL Calcium Level 9.1 MG/DL Alkaline Phosphatase 89 U/L Aspartate Amino Transf (AST/SGOT) 32 U/L Alanine Aminotransferase (ALT/SGPT) 43 U/L Total Bilirubin 0.4 MG/DL Sodium Level 146 MEQ/L Potassium Level 3.3 MEQ/L Chloride Level 105 MEQ/L Carbon Dioxide Level 27.8 MEQ/L Anion Gap 13 MEQ/L Estimat Glomerular Filtration Rate 97 ML/MIN Total Creatine Kinase 221 U/L Creatine Kinase MB 2.1 NG/ML Troponin I LESS THAN 0.02 NG/ML Lipase 218 U/L Thyroid Stimulating Hormone 3rd Gen 0.549 uIU/ML Salicylates Level LESS THAN 1.7 MG/DL Acetaminophen Level LESS THAN 2.0 MCG/ML Ethyl Alcohol Level LESS THAN 3 MG/DL Urine Color YELLOW Urine Turbidity HAZY Urine pH 7.0 Urine Specific [place] 1.020 Urine Protein TRACE mg/dL Urine Glucose (UA) NEG mg/dL Urine Ketones NEG mg/dL Urine Occult Blood NEG Urine Nitrite NEG Urine Bilirubin NEG Urine Urobilinogen 2.0 MG/DL Urine Leukocyte Esterase NEG Urine RBC 1 /hpf Urine WBC 1 /hpf Urine Mucus FEW /lpf Microscopic Urinalysis Comment CULT NOT INDICATED Urine Opiates Screen NEG Urine Barbiturates Screen NEG Urine Amphetamines Screen POS Urine Benzodiazepines Screen NEG Urine Cocaine Screen POS Urine Cannabinoids Screen NEG Lactic Acid Level 6.5 mmol/L Blood Gas Puncture Site RT BRACHIAL Blood Gas Patient Temperature 98.6 Blood Gas HCO3 23 mmol/L Blood Gas Base Excess -1.3 mmol/L Blood Gas Oxygen Saturation 96 % Arterial Blood pH 7.39 Arterial Blood Partial Pressure CO2 39 mmHg Arterial Blood Partial Pressure O2 104 mmHG Arterial Blood Oxygen Content 17.3 Vol % Arterial Blood Carboxyhemoglobin 1.7 % Arterial Blood Methemoglobin 0.6 % Blood Gas Hemoglobin 12.7 G/DL Blood Gas Inspired Oxygen 21 % Test 10/05/17 17:45 10/05/17 19:00 10/06/17 04:12 10/06/17 04:13 Nasal Screen MRSA (PCR) MRSA NOT DETECTED Lactic Acid Level 1.9 mmol/L Blood Urea Nitrogen 2 MG/DL Creatinine 0.70 MG/DL Random Glucose 124 MG/DL Total Protein 6.3 GM/DL Albumin 3.4 GM/DL Calcium Level 7.9 MG/DL Alkaline Phosphatase 70 U/L Aspartate Amino Transf (AST/SGOT) 29 U/L Alanine Aminotransferase (ALT/SGPT) 35 U/L Total Bilirubin 0.8 MG/DL Sodium Level 144 MEQ/L Potassium Level 3.7 MEQ/L Chloride Level 111 MEQ/L Carbon Dioxide Level 24.6 MEQ/L Anion Gap 8 MEQ/L Estimat Glomerular Filtration Rate 132 ML/MIN White Blood Count 6.1 TH/MM3 Red Blood Count 5.12 MIL/MM3 Hemoglobin 13.9 GM/DL Hematocrit 41.8 % Mean Corpuscular Volume 81.6 FL Mean Corpuscular Hemoglobin 27.1 PG Mean Corpuscular Hemoglobin Concent 33.2 % Red Cell Distribution Width 14.8 % Platelet Count 184 TH/MM3 Mean Platelet Volume 7.7 FL Neutrophils (%) (Auto) 63.3 % Lymphocytes (%) (Auto) 27.9 % Monocytes (%) (Auto) 8.2 % Eosinophils (%) (Auto) 0.4 % Basophils (%) (Auto) 0.2 % Neutrophils # (Auto) 3.8 TH/MM3 Lymphocytes # (Auto) 1.7 TH/MM3 Monocytes # (Auto) 0.5 TH/MM3 Eosinophils # (Auto) 0.0 TH/MM3 Basophils # (Auto) 0.0 TH/MM3 CBC Comment DIFF FINAL Differential Comment Random Cortisol 26.5 MCG/DL Date/Time Source Procedure Growth Status 10/05/17 14:00 Blood Peripheral Aerobic Blood Culture - Preliminary NO GROWTH IN 1 DAY Resulted 10/05/17 14:00 Blood Peripheral Anaerobic Blood Culture - Preliminary NO GROWTH IN 1 DAY Resulted Mental Status Examination Appearance: Appropriate Consciousness: Alert Orientation: x4 Motor Activity: Normal gait Speech: Unremarkable Language: Adequate Fund of Knowledge: Adequate Attention and Concentration: Adequate Memory: Unremarkable Mood: Angry, Irritable Affect: Labile Thought Process & Associations: Intact Thought Content: Appropriate Hallucination Type: None Delusion Type: None Suicidal Ideation: No Suicidal Plan: No Suicidal Intention: No Homicidal Ideation: No Homicidal Plan: No Homicidal Intention: No Insight: Poor Judgment: Poor Assessment & Plan Problem List: (1) Bipolar disorder, unspecified ICD Codes: F31.9 - Bipolar disorder, unspecified Assessment & Plan: On my psychiatric evaluation today the patient presents a little bit sedated, irritable, oppositional, poorly cooperative. The patient had to be medicated initially with Haldol and Ativan IM in order to calm him down. He was agitated and hostile with altered mental status. The patient is unable to elaborate about recent overdose. He superficially denies SI, denies HI, denies visual and auditory hallucinations. His mother, use as collateral information, it states that the patient overdosed with suicidal intentions as the patient called her before overdosing to say goodbye and to say that he could not continue his life anymore. The patient has history of bipolar disorder, polysubstance dependence including cocaine, heroin, amphetamines, benzodiazepines and alcohol. He has been hospitalized before, tried to commit suicide by hanging in 2015. He also has history of poor coping skills, poor impulse control, aggressive behavior. Given his recent suicidal attempt, past psychiatric history, the patient has an increased risk to harm himself. He needs psychiatric admission for stabilization. Place on CIWA. Can use Haldol 5 mg IM every 8 hours as needed aggressive behavior and agitation, as well as Ativan 2 mg IM every 8 hours for the same reason. Transfer patient to psychiatry once medically clear. The patient is placed on the [place] act. No additional psychotropics at this moment. Consult appreciated. Assessment & Plan Estimated LOS: days Orlando Martinez MD October 06, 2017 12:13
--- NOTE | 2017-10-06 14:27 | MG ---
cc: Kori Philip MD EEG NUMBER: [id number] REFERRING PHYSICIAN: Kori Philip MD INDICATION: Room 1306. Awake, drowsy, asleep. Photic done. He told the medical chief technician his brain is functioning fine. He is a 32-year-old man noted to have seizures, possible medication overdose. Glucose level was 12. DESCRIPTION OF RECORD: The patient has overall background of 8 Hz, 20-30 microvolts. Heart rate was noted to be at 45-43. Symmetrical slowing of the background with the patient falling asleep, but otherwise when he is awake, he has normal alpha activity. Photic stimulation does elicit a normal driving response. IMPRESSION: Normal electroencephalogram without any epileptiform features. He did have some bradycardic events noted on his EKG portion. Clinical correlation. Kori Philip MD DF/VASYL , 02:15 PM , 02:26 PM
--- NOTE | 2017-10-06 14:45 | EKG ---
Date Performed: 10/05/2017 Time Performed: 12:45:28 PTAGE: 32 years EKG: SINUS BRADYCARDIA WITH FREQUENT SUPRAVENTRICULAR PREMATURE COMPLEXES POSSIBLE LEFT ATRIAL E NLARGEMENT POSSIBLE RIGHT VENTRICULAR CONDUCTION DELAY PROLONGED QT INTERVAL ABNORMAL ECG INTERPRETAT ION BASED ON A DEFAULT AGE OF 41 YEARS NO PREVIOUS TRACING DOCTOR: Adam Camarillo Interpretating Date/Time 10/06/2017 14:44:17
--- NOTE | 2017-10-06 15:13 | HHI.PR ---
Subjective Remarks Patient says he is feeling all right. Denies any chest pain or shortness of breath. Denies nausea or vomiting. Says he needs to leave the hospital. He gives me permission to discuss his medical conditions with his mother at bedside. Mother reports history of suicide attempts, thinks that this was a suicide attempt. Objective Vital Signs Date Time Temp Pulse Resp B/P (MAP) Pulse Ox O2 Delivery O2 Flow Rate FiO2 10/06/17 04:00 97.8 84 26 109/68 (82) 99 10/06/17 00:00 97.8 72 24 109/66 (80) 99 10/05/17 19:00 97.6 55 19 99/73 (82) 100 10/05/17 17:22 50 14 137/88 (104) 98 10/05/17 15:55 100 21 10/05/17 15:25 97.7 52 19 94/51 (65) 99 I/O 10/05/17 10/05/17 10/05/17 10/06/17 10/06/17 10/06/17 06:59 14:59 22:59 06:59 14:59 22:59 Intake Total 2000 ml Output Total 300 ml 2000 ml Balance 2000 ml -300 ml -2000 ml Intake IV Total 2000 ml Output Urine Total 300 ml 2000 ml # Bowel Movements 0 0 Result Diagram: 10/06/17 0413 10/06/17 041 Objective Remarks GENERAL: Patient sitting up in bed. Appears comfortable. SKIN: Warm and dry. HEAD: Normocephalic. EYES: No scleral icterus. No injection or drainage. NECK: Supple, trachea midline. No JVD. CARDIOVASCULAR: Regular rate and rhythm without murmurs, gallops, or rubs. RESPIRATORY: Breath sounds equal bilaterally. No accessory muscle use. GASTROINTESTINAL: Abdomen soft, non-tender, nondistended. MUSCULOSKELETAL: No cyanosis, or edema. BACK: Nontender without obvious deformity. No CVA tenderness. A/P Assessment and Plan //Suspected suicide attempt -Given mother's history. -Olga Lidia acted, have ordered a sitter. Psychiatry following. Appreciate assistance. //Encephalopathy. -CT brain on admission negative Possibly secondary to hypoglycemia versus drug overdose. = Much improved. Likely secondary to hypoglycemia. //Suspected drug overdose -Amphetamines and cocaine positive. Suspect PCP = Nursing concerned with sinus bradycardia with heart rate in the 40s, however asymptomatic. Not concerned about this sinus bradycardia. As long as it is over 40. Continue to monitor on telemetry. //Acute severe Hypoglycemia = Glucose of 12 on initial labs. Improved to 125 per ER continue D10 half- normal saline drip. Hypoglycemia protocol = Cortisol within expected limits. TSH within normal limits. = Patient still with glucose just over 100 on D10 drip at 85 mL/h. -we will decrease D10 drip. Endocrinology consult pending. Insulin level pending. //Seizure, acute Tonic-clonic seizure reported. Please secondary to stimulants/hypoglycemia. = Appreciate neurology assistance. //Lactic acidosisresolved = Lactate 6.5 after seizure. ABG after seizure unremarkable. Likely secondary to seizure. A recheck stat. = Resolved. Likely secondary to seizure. //Hypernatremia. 146. On admission. Improved. Continue to monitor. //Hypokalemia. 3.3. On admission. Resolved. Discharge Planning Pending endocrinology consult, stability and glucose Patient is Duggan acted with psychiatry following. Keo Herrera MD October 06, 2017 15:13
[2017-10-06] MEDS: POTASSIUM CHLOR 10 MEQ PREMIX 100 ML IV SCH (15:17)
[2017-10-07 03:00] VITALS: PULSE 52; RESP 24; TEMP 98.5; O2SAT 96
[2017-10-07 03:56] LABS: AUTOMATED NEUTROPHIL # 1.8 TH/MM3 (1.8-7.7); BASOPHIL % 0.5 % (0.0-2.0); EOSINOPHIL # 0.1 TH/MM3 (0-0.4); EOSINOPHIL % 1.3 % (0.0-4.0); HEMATOCRIT 41.1 % (39.0-51.0); HEMOGLOBIN 13.6 GM/DL (13.0-17.0); LYMPH % 55.4 % (9.0-44.0); MEAN CELL VOLUME 81.9 FL (80.0-100.0); MEAN PLATELET VOLUME 7.5 FL (7.0-11.0); MONO % 9.5 % (0.0-8.0); MONOCYTE # 0.5 TH/MM3 (0-0.9); NEUT % 33.3 % (16.0-70.0); PLATELET COUNT 209 TH/MM3 (150-450); RED BLOOD COUNT 5.02 MIL/MM3 (4.50-5.90); RED CELL DISTRIBUTION WIDTH 14.8 % (11.6-17.2); WHITE BLOOD COUNT 5.4 TH/MM3 (4.0-11.0)
[2017-10-07 04:44] LABS: BICARBONATE 27.1 MEQ/L (21.0-32.0); CALCIUM 8.4 MG/DL (8.5-10.1); CREATININE 0.82 MG/DL (0.60-1.30); MAGNESIUM 1.9 MG/DL (1.5-2.5); PHOSPHORUS 3.4 MG/DL (2.5-4.9)
[2017-10-07 07:00] VITALS: BP 99/56; PULSE 49; RESP 15; TEMP 97.8; O2SAT 99
[2017-10-07] MEDS: SODIUM CHLORIDE 0.9% FLUSH 10 ML FLUSH IV FLUSH SCH (09:00)
[2017-10-07 11:00] VITALS: BP 116/75; PULSE 61; RESP 14; TEMP 98; O2SAT 100
--- NOTE | 2017-10-07 14:22 | HHI.PYPN ---
Subjective Remarks The patient was seen today for psychiatric reevaluation. The patient is found irritable, requesting to be discharged. The patient reports that he did not overdose with suicidal intentions. He says that he was just trying to get high. The patient reports that he admits he abuses drug, he needs help, but he denies depressive symptoms, denies suicidal and homicidal ideation, denies visual and auditory hallucinations. Patient is fully oriented 3, no attention deficit, no fluctuation of consciousness at this moment. He is future oriented , he says that he has to go to work, that he has to take care of his 5 pets and his girlfriend. The patient has been quite agitated, loud, disrespectful with nurses in the floor. I spoke with his mother who expressed understanding that the patient might not need psychiatric admission but a comprehensive rehabilitation program. Review of Systems Constitutional: DENIES: Diaphoretic episodes, Fatigue, Fever, Weight gain, Weight loss, Chills, Dizziness, Change in appetite, Night Sweats Endocrine: DENIES: Heat/cold intolerance, Polydipsia, Polyuria, Polyphagia Eyes: DENIES: Blurred vision, Diplopia, Eye inflammation, Eye pain, Vision loss , Photosensitivity, Double Vision Ears, nose, mouth, throat: DENIES: Tinnitus, Hearing loss, Vertigo, Nasal discharge, Oral lesions, Throat pain, Hoarseness, Ear Pain, Running Nose, Epistaxis, Sinus Pain, Toothache, Odynophagia Respiratory: DENIES: Apneas, Cough, Snoring, Wheezing, Hemoptysis, Sputum production, Shortness of breath Cardiovascular: DENIES: Chest pain, Palpitations, Syncope, Dyspnea on Exertion , PND, Lower Extremity Edema, Orthopnea, Claudication Gastrointestinal: DENIES: Abdominal pain, Black stools, Bloody stools, Constipation, Diarrhea, Nausea, Vomiting, Difficulty Swallowing, Anorexia Genitourinary: DENIES: Sexual dysfunction, Urinary frequency, Urinary incontinence, Urgency, Hematuria, Dysuria, Nocturia, Penile Discharge, Testicular Pain, Testicular Swelling Musculoskeletal: DENIES: Joint pain, Muscle aches, Stiffness, Joint Swelling, Back pain, Neck pain Integumentary: DENIES: Abnormal pigmentation, Nail changes, Pruritus, Rash Hematologic/lymphatic: DENIES: Bruising, Lymphadenopathy Immunologic/allergic: DENIES: Eczema, Urticaria Neurologic: DENIES: Abnormal gait, Headache, Localized weakness, Paresthesias, Seizures, Speech Problems, Tremor, Poor Balance Psychiatric: DENIES: Anxiety, Confusion, Mood changes, Depression, Hallucinations, Agitation, Suicidal Ideation, Homicidal Ideation, Delusions Mental Status Examination Appearance: Appropriate Consciousness: Alert Orientation: x4 Motor Activity: Normal gait Speech: Unremarkable Language: Adequate Fund of Knowledge: Adequate Attention and Concentration: Adequate Memory: Unremarkable Mood: Angry, Irritable Affect: Labile Thought Process & Associations: Intact Thought Content: Appropriate Hallucination Type: None Delusion Type: None Suicidal Ideation: No Suicidal Plan: No Suicidal Intention: No Homicidal Ideation: No Homicidal Plan: No Homicidal Intention: No Insight: Fair Judgment: Impulsive Results Labs Test 10/06/17 14:49 10/07/17 03:36 White Blood Count 5.4 TH/MM3 Red Blood Count 5.02 MIL/MM3 Hemoglobin 13.6 GM/DL Hematocrit 41.1 % Mean Corpuscular Volume 81.9 FL Mean Corpuscular Hemoglobin 27.0 PG Mean Corpuscular Hemoglobin Concent 33.0 % Red Cell Distribution Width 14.8 % Platelet Count 209 TH/MM3 Mean Platelet Volume 7.5 FL Neutrophils (%) (Auto) 33.3 % Lymphocytes (%) (Auto) 55.4 % Monocytes (%) (Auto) 9.5 % Eosinophils (%) (Auto) 1.3 % Basophils (%) (Auto) 0.5 % Neutrophils # (Auto) 1.8 TH/MM3 Lymphocytes # (Auto) 3.0 TH/MM3 Monocytes # (Auto) 0.5 TH/MM3 Eosinophils # (Auto) 0.1 TH/MM3 Basophils # (Auto) 0.0 TH/MM3 CBC Comment DIFF FINAL Differential Comment Blood Urea Nitrogen 7 MG/DL Creatinine 0.82 MG/DL Random Glucose 100 MG/DL Albumin 3.0 GM/DL Calcium Level 8.4 MG/DL Phosphorus Level 3.4 MG/DL Magnesium Level 1.9 MG/DL Sodium Level 142 MEQ/L Potassium Level 4.0 MEQ/L Chloride Level 109 MEQ/L Carbon Dioxide Level 27.1 MEQ/L Anion Gap 6 MEQ/L Estimat Glomerular Filtration Rate 110 ML/MIN Date/Time Source Procedure Growth Status 10/05/17 14:00 Blood Peripheral Aerobic Blood Culture - Preliminary NO GROWTH IN 2 DAYS Resulted 10/05/17 14:00 Blood Peripheral Anaerobic Blood Culture - Preliminary NO GROWTH IN 2 DAYS Resulted Vitals/IOs Vital Signs Date Time Temp Pulse Resp B/P (MAP) Pulse Ox O2 Delivery O2 Flow Rate FiO2 10/07/17 11:00 98.0 61 14 116/75 (89) 100 10/07/17 07:00 Room Air 21 Intake and Output 10/07/17 10/07/17 10/08/17 08:00 16:00 00:00 Intake Total 543 ml Balance 543 ml Assessment & Plan Problem List: (1) Bipolar disorder, unspecified ICD Codes: F31.9 - Bipolar disorder, unspecified Assessment & Plan: On psychiatric evaluation today the patient does not present any neuropsychiatric symptoms that require an immediate psychiatric intervention. Recent overdose was most probably the result of maladaptive use of drug, drug dependence and no secondary to a suicidal attempt. Patient does not benefit of inpatient psychiatric admission. Patient has visible cluster B traits suggest an underlying personality disorder. I educated the patient about the importance of avoiding psychoactive drugs, and engaging in a comprehensive rehabilitation program. Mother and patient agreed with discharge. Assessment & Plan Estimated LOS: days Justification for Cont. Inpt. No admission indicated, Duggan act can be lifted Orlando Martinez MD Oct 07, 2017 14:22
--- NOTE | 2017-10-07 18:05 | HHI.PR ---
Subjective Remarks RN denies any setbacks since last night. Pt tolerating po intake well. BG very stable. Objective Vital Signs Date Time Temp Pulse Resp B/P (MAP) Pulse Ox O2 Delivery O2 Flow Rate FiO2 10/07/17 11:00 98.0 61 14 116/75 (89) 100 10/07/17 07:00 99 Room Air 21 10/07/17 07:00 97.8 49 15 99/56 (70) 99 10/07/17 03:00 98.5 52 24 96 10/06/17 23:00 98.5 55 13 94/50 (65) 98 10/06/17 21:03 94 21 10/06/17 19:00 98.7 64 16 110/56 (74) 90 10/06/17 19:00 90 Room Air 21 I/O 10/06/17 10/06/17 10/06/17 10/07/17 10/07/17 10/07/17 07:00 15:00 23:00 07:00 15:00 23:00 Intake Total 1410 ml 543 ml Output Total 2000 ml 2200 ml Balance -2000 ml -790 ml 543 ml Intake Oral 460 ml IV Total 950 ml 543 ml Output Urine Total 2000 ml 2200 ml # Voids 1 1 # Bowel Movements 0 1 Result Diagram: 10/07/17 0336 10/07/17 0336 Objective Remarks sitting up in bed, NAD A/P Assessment and Plan Plan was to discontinue the patient's dextrose infusion as he is tolerating p.o. intake well and his blood glucoses were more than stable. However Pt left AMA once psychiatry lifted martell act and before i was notified. Jim Mas MD Oct 07, 2017 18:05
== END 2017-10-07 14:49 | disposition left against medical advice (07) | DRG 917 ==
LOC: NEPE 12:30 → NEDA 15:15 → N03A 17:26
PROVIDERS: ADMIT Hospitalist; ATTEND Hospitalist
DX: T40.5X1A Poisoning by cocaine, accidental (unintentional), initial encounter (principal); G93.40 Encephalopathy, unspecified; E87.2 Acidosis; E87.0 Hyperosmolality and hypernatremia; R56.9 Unspecified convulsions; E87.6 Hypokalemia; E16.2 Hypoglycemia, unspecified; T43.621A Poisoning by amphetamines, accidental (unintentional), initial encounter; F31.9 Bipolar disorder, unspecified
CPT/HCPCS: 36600; 70450; 71045; 80053; 80069; 80307; 81001; 82533; 82550; 82552; 82805; 82948; 83525; 83605; 83690; 83735; 84443; 84484; 85025; 85610; 85730; 87040; 87641; 93005; 95819; 96361; 96374; 96375; 96376; J0330; J1630; J2060; J3411; J3480; J7030; J7050

== ENCOUNTER 2017-12-18 03:18 | Inpatient (IN) ==
[2017-12-18] MEDS ORDERED: Piperacil/Tazo 4.5 GM Premix 4.5 GM/100 ML BAG IV.SIG ONE (04:48)
[2017-12-18] MEDS ORDERED: Vancomycin Inj 1 GM/200 ML PIGGYBACK IV.SIG ONE (04:48)
[2017-12-18] MEDS ORDERED: Tetanus/Diphtheria Toxoid Adult Vaccine Inj 0.5 ML Vial IM ONE (04:48)
--- NOTE | 2017-12-18 04:58 | ED ---
HPI General Chief complaint: Skin/Abscess/Foreign Body Stated complaint: two poss cyst Time Seen by Provider: 12/18/17 04:27 Source: patient Mode of arrival: ambulatory Limitations: no limitations History of Present Illness HPI narrative: 32-year-old white male presents emergency department with complaints of multiple abscesses to his body. He has been on antibiotics for the past week. He was seen at [facility] and placed on Keflex. There was an incision and drainage performed on the back of his scalp. Since then he has developed a lesion on his right face, and right knee. He states that it has become increasingly painful, red and swollen so severe today that he is having difficulty ambulating. He is felt subjectively warm but has not documented a fever. He states the pain is moderate to severe. History of MRSA in the past as well as IV drug abuse. Patient states that he has not used IV drugs in the past 7 months but does snort and smoke mildly and methamphetamine. Patient states that he has not had a tetanus shot over 5 years. Symptoms are exacerbated by his substance abuse. No alleviating factor. Related Data Home Medications Medication Instructions Recorded Confirmed cephalexin [Keflex] 750 mg PO BID 12/18/17 12/18/17 Allergies Allergy/AdvReac Type Severity Reaction Status Date / Time No Known Allergies Allergy Verified 12/18/17 03:26 Review of Systems ROS: all other systems reviewed are negative [facility] Medical History Medical History Patient denies medical problems (Acute) Surgical History Surgical History No history of previous surgery (Acute) Family History Family History Other Patient denies significant medical history Social History Social History Substance History: Active Abuse Second Hand Smoke Exposure: Yes Smoking Status: Current every day smoker Tobacco Type: Cigarettes How Often Do You Have a Drink Containing Alcohol: 4 or more times a week Recent Travel in [facility] within the Last 8 Weeks: No Recent Out of Country Travel within the Last 8 Weeks: No Substance Abuse Detail Marijuana: Substance Use Status: Early Remission Route Used Substance Abuse: Inhalation Reason for Use: Feels Good Immunization History Tetanus Immunization: >5 Years Tetanus Immunization Year if Known: 2016 Hx Influenza Vaccine This Season: No Exam Narrative Exam Narrative: GENERAL: Well-developed, well-nourished in no apparent distress. Nontoxic appearing. HEAD: Patient has 2 abscesses involving the head and scalp. The first abscess is to the posterior occiput just above the level of the neck. It is erythematous, tender, fluctuant and draining pus. It measures approximately 3 x 5 cm. There is also a second lesion to the right temporal region. This is open and draining. Mildly erythematous. No fluctuance or pointing. EYES: Pupils equal round and reactive. Extraocular motions intact. No scleral icterus. No injection or drainage. ENT: Nose clear. Throat without erythema, tonsillar hypertrophy or exudate. Uvula midline. Airway patent. NECK: Trachea midline. Supple, nontender, moves head freely. No central bony tenderness or spasm. CARDIOVASCULAR: Regular rate and rhythm without murmurs, gallops, or rubs. RESPIRATORY: Clear to auscultation. Breath sounds equal bilaterally. No wheezes , rales, or rhonchi. GASTROINTESTINAL: Abdomen soft, non-tender, nondistended. No hepato-splenomegaly , or palpable masses. No guarding. EXTREMITIES: No clubbing, cyanosis. Examination of the right lower extremity reveals a abscess to the knee with cellulitis to the lower leg. There is an area of significant swelling, erythema, warmth, edema, tenderness. There is a fluctuant center to it. Patient has decreased range of motion in the knee due to pain. No pain in the foot, ankle, hip. BACK: Nontender without deformity. No flank tenderness. NEUROLOGICAL: Awake, alert and oriented x 3 .Cranial nerves grossly intact. Motor and sensory grossly within normal limits. Normal speech. Procedures Abscess I/D Site: lower extremity Side (if applicable): right Anesthetic used: with epi Amount of fluid expressed (mL): 35 Irrigation: No Packing used?: iodoform Complications: pain Course Initial Documented Vital Signs Temperature 98.6 F 12/18/17 03:26 Pulse Rate 94 H 12/18/17 03:26 Respiratory Rate 16 12/18/17 03:26 Blood Pressure 123/75 12/18/17 03:26 Pulse Oximetry 99 12/18/17 03:26 Last Documented Vital Signs Temperature 98.5 F 12/19/17 00:00 Pulse Rate 78 12/19/17 00:00 Respiratory Rate 16 12/19/17 00:00 Blood Pressure 118/56 L 12/19/17 00:00 Pulse Oximetry 98 12/19/17 00:00 Medical Decision Making MDM Narrative Medical decision making narrative: IV access is obtained. Blood cultures, CBC, chemistry, lactic, vancomycin 1 g IV, Zosyn 4.5 g IV. The patient has multiple abscesses to the scalp, face, and right knee. The abscess on his right knee is significantly larger than all other abscesses. There is edema of the lower leg with cellulitis. Patient will necessitate IV antibiotic, incision and drainage, and admission to the hospital for further IV antibiotics. An incision and drainage has been performed. Approximately 35 cc of purulent pus was expressed. I have spoken with Dr. Escobedo who is agreed to admit the patient. The patient will be admitted for failed outpatient antibiotics, right knee cellulitis with abscess patient will necessitate full admission. Differential Diagnosis Differential Diagnosis: MDM: High Differential diagnoses: Abscess, folliculitis, cellulitis, lymphangitis, abrasion, contact dermatitis Lab Data Result diagrams: 12/18/17 05:20 12/18/17 05:20 Lab Results 12/18/17 12/18/17 Range/Units 05:20 05:20 WBC 9.7 (4.0-11.0) th/mm3 RBC 5.00 (4.50-5.90) mil/mm3 Hgb 13.7 (13.0-17.0) gm/dL Hct 41.2 (39.0-51.0) % MCV 82.3 (80.0-100.0) fL MCH 27.4 (27.0-34.0) pg MCHC 33.2 (32.0-36.0) % RDW 13.6 (11.6-17.2) % Plt Count 272 (150-450) th/mm3 MPV 6.8 L (7.0-11.0) fL Neut % (Auto) 69.0 (16.0-70.0) % Lymph % (Auto) 19.4 (9.0-44.0) % Dickens % (Auto) 10.8 H (0.0-8.0) % Eos % (Auto) 0.6 (0.0-4.0) % Baso % (Auto) 0.2 (0.0-2.0) % Neut # (Auto) 6.7 (1.8-7.7) th/mm3 Lymph # (Auto) 1.9 (1.0-4.8) th/mm3 Dickens # (Auto) 1.0 H (0.0-0.9) th/mm3 Eos # (Auto) 0.1 (0.0-0.4) th/mm3 Baso # (Auto) 0.0 (0.0-0.2) th/mm3 WBC Differential . Differential Comment Auto diff final Sodium 131 L (136-145) meq/L Potassium 4.0 (3.5-5.1) meq/L Chloride 101 (98-107) meq/L Carbon Dioxide 22.1 (21.0-32.0) meq/L Anion Gap 8 (5-15) meq/L BUN 10 (7-18) mg/dL Creatinine 0.80 (0.60-1.30) mg/dL Estimated GFR Greater than 89 (>89) mL/min Random Glucose 94 (74-106) mg/dL Calcium 8.4 L (8.5-10.1) mg/dL Imaging Data Radiologist's impression: Knee MRI 12/18/17 00:00 CONCLUSION: 1. Diffuse nonspecific edema and soft tissue swelling around the knee joint. 2. Focal oval-shaped complex fluid collection in the lateral soft tissues of the knee measuring 4 cm x 1.4 cm suggestive of a soft tissue abscess. 3. No evidence to suggest any internal derangement. Discharge Plan Discharge Disposition Patient Disposition: 30 Still Patient Discharge Condition Condition: Stable Discharge Details Diagnosis: Cellulitis, Abscess Physicians Team ED Provider: Donald Anderson ED Midlevel Provider: Mansoor Wolfe Primary Care Provider: Primary Care Dianna Daniels Attending Provider: Meir Cox Other Providers: Dariana Ball Status ED Status: Left Department Discharge Information Discharge Date/Time: 12/18/17 08:35
[2017-12-18 05:33] LABS: Baso % (Auto) 0.2 % (0.0-2.0); Eos # (Auto) 0.1 th/mm3 (0.0-0.4); Eos % (Auto) 0.6 % (0.0-4.0); Hematocrit 41.2 % (39.0-51.0); Hemoglobin 13.7 gm/dL (13.0-17.0); Lymph # (Auto) 1.9 th/mm3 (1.0-4.8); Lymph % (Auto) 19.4 % (9.0-44.0); Mean Corpuscular HGB Conc 33.2 % (32.0-36.0); Mean Corpuscular Hemoglobin 27.4 pg (27.0-34.0); Mean Corpuscular Volume 82.3 fL (80.0-100.0); Mean Platelet Volume 6.8 fL (7.0-11.0); Mono % (Auto) 10.8 % (0.0-8.0); Neut # (Auto) 6.7 th/mm3 (1.8-7.7); Platelet Count 272 th/mm3 (150-450); Red Cell Distribution Width 13.6 % (11.6-17.2); White Blood Count 9.7 th/mm3 (4.0-11.0)
[2017-12-18] MEDS ORDERED: Vancomycin Inj 1,000 MG in Sodium Chlor 0.9% Inj 250 ML IV.SIG ONE (05:45)
[2017-12-18 05:49] LABS: Anion Gap 8 meq/L (5-15); Blood Urea Nitrogen 10 mg/dL (7-18); Calcium 8.4 mg/dL (8.5-10.1); Carbon Dioxide 22.1 meq/L (21.0-32.0); Chloride 101 meq/L (98-107); Glomerular Filtration Rate Greater Than 89 mL/min (>89); Glucose,Random 94 mg/dL (74-106); Sodium 131 meq/L (136-145)
[2017-12-18] MEDS ORDERED: Acetaminophen 325 MG Tablet PO PRN (06:38)
[2017-12-18] MEDS ORDERED: Temazepam 15 MG Capsule PO PRN (06:38)
[2017-12-18] MEDS ORDERED: Bisacodyl 10 MG Supp RECTAL PRN (06:38)
[2017-12-18] MEDS ORDERED: Vancomycin Consult Pharmacy 1 EACH OTHER SCH (07:00)
[2017-12-18] MEDS: Sod Chloride 0.9% Inj 1,000 ML IV.CONT SCH ×2 (07:14→19:30)
[2017-12-18] MEDS: Senna/Docusate Sodium 8.6/50 MG Tablet PO SCH ×3 (08:19→21:43)
--- NOTE | 2017-12-18 11:23 | P.HP ---
History of Present Illness Primary Care Physician: No Primary Care Physician Chief Complaint: right knee swelling History of Present Illness: 32-year-old male with history of polysubstance use, IVDU, MRSA, presents with complaints of multiple abscesses, worse at the right anterior knee. Patient reports 4 days ago he started to notice right anterior knee swelling with overlying erythema. He states yesterday it became increasingly more painful and swollen therefore he decided to be sent to the ER. He denies any difficulty bending the right knee, however states it is painful to ambulate. He reports subjective fevers, however no documented fevers since his arrival. He recently had a abscess on the back of his scalp, status post I&D at [facility], and was given Keflex antibiotics. He reports compliance with the antibiotics, however symptoms continued to worsen. The patient states he has not injected drugs in the past 7 months, however does admit to smoking marijuana and occasional methamphetamine. He denies any other medical complaints including no chest pain, shortness of breath, abdominal pain, nausea/ vomiting, or diarrhea. Inpatient Certification: I certify that the inpatient services were ordered in accordance with Medicare regulations governing the order. This includes certification that hospital inpatient services are reasonable and necessary and in the case of services not specified as inpatient-only under 42 CFR 419.22(n), that they are appropriately provided as inpatient services in accordance to with the 2-midnight benchmark under 43 CFR 412.3(e) Estimated Total Length of Stay (Days): 2 Plans for Post Hospital Care: Not yet determined Review of Systems All other systems reviewed negative except as stated in HPI [facility] - History History Provided By: Patient - Medical History Medical History: Medical History (Last Reviewed 12/18/17 @ 13:30 by Trina Gonzalez) Patient denies medical problems - Surgical History Surgical History: Surgical History (Last Reviewed 12/18/17 @ 13:30 by Trina Gonzalez) No history of previous surgery - Family History Family History: Family History (Last Updated 12/18/17 @ 13:30 by Trina Gonzalez) Other Patient denies significant medical history - Tobacco History Second Hand Smoke Exposure: Yes Tobacco Use In Past 30 Days: Yes Smoking Status: Current every day smoker Tobacco Type: Cigarettes - Alcohol History How Often Do You Have a Drink Containing Alcohol: 4 or more times a week - Substance Use History Substance History: Active Abuse - Substance Use Type Marijuana Status: Early Remission Route Used: Inhalation Reason for Use: Feels Good - Travel History Recent Travel in the [place] Within the Last 8 Weeks: No - Immunization History Tetanus Immunization: >5 Years Tetanus Immunization Year if Known: 2016 Hx Influenza Vaccine This Season: No Medications and Allergies Active Medications: Active Medications Acetaminophen (Tylenol) 650 mg PO Q4H PRN PRN Reason: Temp > 100.4 Al Hydroxide/Mg Hydroxide (Milk Of Magnesia Liq) 30 ml PO Q12H PRN PRN Reason: Mild Constipation Bisacodyl (Dulcolax Supp) 10 mg RECTAL DAILY PRN PRN Reason: SEVERE CONSITIPATION Sodium Chloride (Ns Inj) 1,000 mls @ 100 mls/hr IV.CONT .Q10H [facility] Last Admin: 12/18/17 07:14 Dose: 100 mls/hr Pharmacy Profile Note (Vancomycin Consult Pharmacy) 0 mls @ 0 mls/hr OTHER UNSCH ISSA Piperacillin/Tazobactam/Dextrose (Zosyn 3.375 Gm Premix) 50 mls @ 100 mls/hr IV.SIG Q6H [facility] Vancomycin HCl 1,000 mg/ (Sodium Chloride) 250 mls @ 250 mls/hr IV.SIG Q8H ISSA Lactulose (Lactulose Liq) 30 ml PO DAILY PRN PRN Reason: SEVERE CONSITIPATION Miscellaneous Information ([facility] Ordered Lab Info) 0 each OTHER ONCE ONE Stop: 12/19/17 07:46 Ondansetron HCl (Zofran Inj) 4 mg IV.PUSH Q6H PRN PRN Reason: NAUSEA OR VOMITING Senna/Docusate Sodium (Tova-Colace) 1 tab PO BID [facility] Last Admin: 12/18/17 08:30 Dose: Not Given Sennosides (Senokot) 17.2 mg PO Q12H PRN PRN Reason: Moderate Constipation Temazepam (Restoril) 15 mg PO HS PRN PRN Reason: INSOMNIA Allergies Allergy/AdvReac Type Severity Reaction Status Date / Time No Known Allergies Allergy Verified 12/18/17 03:26 Home Medications Medication Instructions Recorded Confirmed Type cephalexin [Keflex] 750 mg PO BID 12/18/17 12/18/17 History Exam Vital signs: Vital Signs 12/18/17 03:26 12/18/17 07:29 12/18/17 08:00 Temperature 98.6 F 98.7 F Pulse Rate 94 H 92 H 80 Respiratory Rate 16 18 16 Blood Pressure 123/75 117/64 113/55 L Pulse Oximetry 99 98 Intake & Output 12/17/17 12/18/17 12/18/17 18:59 06:59 18:59 Weight 58.967 kg Narrative: GENERAL: Well-nourished, well-developed patient in [facility]. SKIN: Warm and dry. No rash. 1 abscess at the posterior occipital scalp that is open with scant drainage, and another abscess at the right temporal region noticed open with minimal drainage and surrounding erythema, no fluctuance. HEENT: Normocephalic. Atraumatic. Pupils equal and round. Mucous membranes pink and moist. NECK: Supple. Trachea midline. CARDIOVASCULAR: Regular rate and rhythm. No murmur appreciated. RESPIRATORY: No accessory muscle use. Clear to auscultation. Breath sounds equal bilaterally. GASTROINTESTINAL: Abdomen soft, non-tender, nondistended. Normoactive bowel sounds x4. MUSCULOSKELETAL: No obvious deformities. Extremities without clubbing, cyanosis , or edema. Right anterior knee with diffuse edema/erythema that extends from the distal thigh to the distal olson, with anterior knee abscess s/p I&D with packing in place. Full active ROM of the right knee. NEUROLOGICAL: Awake and alert. No obvious cranial nerve deficits. Motor grossly within normal limits. Moving all extremities spontaneously. Normal speech. PSYCHIATRIC: Appropriate mood and affect; insight and judgment normal. Results - Labs CBC & Chem 7: 12/18/17 05:20 12/18/17 05:20 Labs: Laboratory Results - last 24 hr 12/18/17 12/18/17 05:20 05:20 WBC 9.7 RBC 5.00 Hgb 13.7 Hct 41.2 MCV 82.3 MCH 27.4 MCHC 33.2 RDW 13.6 Plt Count 272 MPV 6.8 L Neut % (Auto) 69.0 Lymph % (Auto) 19.4 [place] % (Auto) 10.8 H Eos % (Auto) 0.6 Baso % (Auto) 0.2 Neut # (Auto) 6.7 Lymph # (Auto) 1.9 [place] # (Auto) 1.0 H Eos # (Auto) 0.1 Baso # (Auto) 0.0 WBC Differential . Differential Comment Auto diff final Sodium 131 L Potassium 4.0 Chloride 101 Carbon Dioxide 22.1 Anion Gap 8 BUN 10 Creatinine 0.80 Estimated GFR Greater than 89 Random Glucose 94 Calcium 8.4 L Caprini VTE Risk Assessment Caprini VTE Risk Assessment: No/Low Risk (score <= 1) Caprini Risk Assessment Model: Point Value = 1 Point Value = 2 Point Value = 3 Point Value = 5 Age 41-60 Minor surgery BMI > 25 kg/m2 Swollen legs Varicose veins or History of unexplained or recurrent spontaneous Oral contraceptives or hormone replacement Sepsis (< 1 month) Serious lung disease, including pneumonia (< 1 month) Abnormal pulmonary function Acute myocardial infarction Congestive heart failure (< 1 month) History of inflammatory bowel disease Medical patient at bed rest Age 61-74 Arthroscopic surgery Major open surgery (> 45 min) Laparoscopic surgery (> 45 min) Malignancy Confined to bed (> 72 hours) Immobilizing plaster cast Central venous access Age >= 75 History of VTE Family history of VTE Factor V Leiden Prothrombin [id number] Lupus anticoagulant Anticardiolipin antibodies Elevated serum homocysteine Heparin-induced thrombocytopenia Other congenital or acquired thrombophilia Stroke (< 1 month) Elective arthroplasty Hip, pelvis, or leg fracture Acute spinal cord injury (< 1 month) Prophylaxis Regimen: Total Risk Factor Score Risk Level Prophylaxis Regimen 0-1 Low Early ambulation 2 Moderate Order ONE of the following: *Sequential Compression Device (SCD) *Heparin 5000 units SQ BID 3-4 Higher Order ONE of the following medications: *Heparin 5000 units SQ TID *Enoxaparin/Lovenox 40 mg SQ daily (WT < 150 kg, CrCl > 30 mL/min) *Enoxaparin/Lovenox 30 mg SQ daily (WT < 150 kg, CrCl > 10-29 mL/min) *Enoxaparin/Lovenox 30 mg SQ BID (WT < 150 kg, CrCl > 30 mL/min) AND/OR *Sequential Compression Device (SCD) 5 or more Highest Order ONE of the following medications: *Heparin 5000 units SQ TID (Preferred with Epidurals) *Enoxaparin/Lovenox 40 mg SQ daily (WT < 150 kg, CrCl > 30 mL/min) *Enoxaparin/Lovenox 30 mg SQ daily (WT < 150 kg, CrCl > 10-29 mL/min) *Enoxaparin/Lovenox 30 mg SQ BID (WT < 150 kg, CrCl > 30 mL/min) AND *Sequential Compression Device (SCD) Assessment and Plan - Plan 32-year-old male with history of polysubstance use, IVDU, MRSA, presents with complaints of multiple abscesses, worse at the right anterior knee. Right Anterior Knee Abscess and Face/Scalp Abscess: Acute. Symptoms 4 days. Afebrile, no leukocytosis. Failed Outpatient treatment with Keflex. -S/p I&D in the ER 12/18, with packing in place. -Wound and blood cultures collected and pending -Continue antibiotics with IV Zosyn, IV vancomycin with pharmacy consult -Pain control with Tylenol, [place] prn -Give IV Toradol for inflammation -Check right knee MRI -Wound care ordered for daily packing exchanges -Given proximity of abscess to the knee joint and concern for septic joint, will consult orthopedics for further evaluation/management Polysubstance abuse: Acute. Patient denies IVDU 7 months however still smokes marijuana/methamphetamines -Counseled on cessation DVT Prophylaxis: teds/SCDs to the LLE only
[2017-12-18] MEDS: Piperacil/Tazo 3.375 GM Premix 50 ML IV.SIG SCH ×2 (12:33→18:04)
[2017-12-18] MEDS: Ketorolac Inj 30 MG/ML (IVP) Vial IV.PUSH SCH ×2 (14:33→21:43)
[2017-12-18] MEDS ORDERED: Gadobutrol PF 7.5 MMOL/7.5 ML Vial (for RAD) IV.SIG ONE (15:40)
--- NOTE | 2017-12-18 15:49 | MR ---
EXAM DATE: 12/18/2017 3:43 PM EDT AGE/SEX: 32 years / Male INDICATIONS: Abscess. CLINICAL DATA: This is the patient's initial encounter. Patient reports that signs and symptoms have been present for 1 month and indicates a pain score of 5/10. MEDICAL/SURGICAL HISTORY: None. None. COMPARISON: No prior exams available for comparison. TECHNIQUE: Multiplanar, multisequence MRI examination was performed with contrast and after the intr avenous administration of 6 ml Gadavist (gadobutrol) contrast as a single exam dose. FINDINGS: Cruciate Ligaments: ACL and PCL are intact. Menisci: Medial and lateral menisci are intact. Collateral Ligaments: MCL and LCL complexes are intact. Marrow/Cartilage: Bone marrow signal is homogeneous and unremarkable. Articular cartilage is unrema rkable. Other: Small joint effusion. Post Contrast: There is nonspecific edema and soft tissue swelling throughout the subcutaneous soft tissues surrounding the knee joint. There does appear to be a focal complex fluid collection along th e lateral soft tissues of the knee measuring 4 cm x 1.4 cm. This is most likely a focal soft tissue a bscess. CONCLUSION: 1. Diffuse nonspecific edema and soft tissue swelling around the knee joint. 2. Focal oval-shaped complex fluid collection in the lateral soft tissues of the knee measuring 4 cm x 1.4 cm suggestive of a soft tissue abscess. 3. No evidence to suggest any internal derangement. Electronically signed by: Jamshid Galvan MD 12/18/2017 3:48 PM EDT
[2017-12-18] MEDS: Vancomycin Inj 1,000 MG in Sodium Chlor 0.9% Inj 250 ML IV.SIG SCH ×2 (16:00→23:26)
[2017-12-19] MEDS: Piperacil/Tazo 3.375 GM Premix 50 ML IV.SIG SCH ×3 (00:43→12:36)
[2017-12-19] MEDS: Ketorolac Inj 30 MG/ML (IVP) Vial IV.PUSH SCH ×4 (01:41→20:39)
[2017-12-19] MEDS: Sod Chloride 0.9% Inj 1,000 ML IV.CONT SCH ×3 (02:12→14:32)
[2017-12-19 06:55] LABS: Eos # (Auto) 0.1 th/mm3 (0.0-0.4); Eos % (Auto) 2.3 % (0.0-4.0); Hematocrit 36.6 % (39.0-51.0); Lymph # (Auto) 2.1 th/mm3 (1.0-4.8); Lymph % (Auto) 42.5 % (9.0-44.0); Mean Corpuscular HGB Conc 32.8 % (32.0-36.0); Mean Corpuscular Hemoglobin 27.3 pg (27.0-34.0); Mean Corpuscular Volume 83.4 fL (80.0-100.0); Mean Platelet Volume 6.8 fL (7.0-11.0); Mono # (Auto) 0.6 th/mm3 (0.0-0.9); Mono % (Auto) 11.4 % (0.0-8.0); Neut # (Auto) 2.1 th/mm3 (1.8-7.7); Neut % (Auto) 42.8 % (16.0-70.0); Platelet Count 239 th/mm3 (150-450); Red Blood Count 4.38 mil/mm3 (4.50-5.90); Red Cell Distribution Width 13.6 % (11.6-17.2); White Blood Count 4.9 th/mm3 (4.0-11.0)
[2017-12-19 07:32] LABS: Anion Gap 6 meq/L (5-15); Blood Urea Nitrogen 11 mg/dL (7-18); Calcium 8.3 mg/dL (8.5-10.1); Carbon Dioxide 27.1 meq/L (21.0-32.0); Chloride 106 meq/L (98-107); Glomerular Filtration Rate Greater Than 89 mL/min (>89); Glucose,Random 91 mg/dL (74-106); Potassium 5.1 meq/L (3.5-5.1); Sodium 139 meq/L (136-145)
--- NOTE | 2017-12-19 07:35 | P.CONOP ---
[facility] Orthopedics Consult Note - [facility] Consult date: 12/19/17 Chief complaint: Right knee abscess, right leg cellulitis Narrative: 32-year-old male with history of polysubstance use, IVDU, MRSA, presents with complaints of multiple abscesses, worse at the right anterior knee. Patient reports 4 days ago he started to notice right anterior knee swelling with overlying erythema. He states yesterday it became increasingly more painful and swollen therefore he decided to be sent to the ER. He denies any difficulty bending the right knee, however states it is painful to ambulate. He reports subjective fevers, however no documented fevers since his arrival. He states the right knee abscess was I&D at [facility] and packing placed. He recently had a abscess on the back of his scalp, status post I&D at [facility], and was given Keflex antibiotics. He reports compliance with the antibiotics, however symptoms continued to worsen. The patient states he has not injected drugs in the past 7 months, however does admit to smoking marijuana and occasional methamphetamine. He denies any other medical complaints including no chest pain, shortness of breath, abdominal pain, nausea/ vomiting, or diarrhea. Review of Systems Denies current fevers, chills, nausea, vomiting, chest pain, abdominal pain, throat pain, cough, blurry vision, difficulty with urination, anxiety, rash, numbness or tingling, weakness, back pain. Reports right knee pain and swelling, however improved over the last 24 hours. [facility] - History History Provided By: Patient - Medical History Medical History: Medical History (Last Reviewed 12/18/17 @ 13:30 by Trina Gonzalez) Patient denies medical problems - Surgical History Surgical History: Surgical History (Last Reviewed 12/18/17 @ 14:06 by Salomón Vasquez RN) No history of previous surgery - Family History Family History: Family History (Last Updated 12/18/17 @ 13:30 by Trina Gonzalez) Other Patient denies significant medical history - Tobacco History Second Hand Smoke Exposure: Yes Tobacco Use In Past 30 Days: Yes Smoking Status: Current every day smoker Tobacco Type: Cigarettes - Alcohol History How Often Do You Have a Drink Containing Alcohol: 4 or more times a week - Substance Use History Substance History: Active Abuse - Substance Use Type Marijuana Status: Early Remission Route Used: Inhalation Reason for Use: Feels Good - Travel History Recent Travel in the [facility] Within the Last 8 Weeks: No Recent Travel Out of the Country Within the Last 8 Weeks: No - Immunization History Tetanus Immunization: >5 Years Tetanus Immunization Year if Known: 2016 Hx Influenza Vaccine This Season: No Medications and Allergies Active Medications: Active Medications Acetaminophen (Tylenol) 650 mg PO Q4H PRN PRN Reason: headache/fever/pain1-4 Hydrocodone Bitart/Acetaminophen ([place] 5/325) 1 tab PO Q6H PRN PRN Reason: pain 5-10 Last Admin: 12/19/17 06:51 Dose: 1 tab Al Hydroxide/Mg Hydroxide (Milk Of Magnesia Liq) 30 ml PO Q12H PRN PRN Reason: Mild Constipation Bisacodyl (Dulcolax Supp) 10 mg RECTAL DAILY PRN PRN Reason: SEVERE CONSITIPATION Sodium Chloride (Ns Inj) 1,000 mls @ 100 mls/hr IV.CONT .Q10H [facility] Last Infusion: 12/19/17 05:33 Dose: 100 mls/hr Pharmacy Profile Note (Vancomycin Consult Pharmacy) 0 mls @ 0 mls/hr OTHER UNSCH [facility] Piperacillin/Tazobactam/Dextrose (Zosyn 3.375 Gm Premix) 50 mls @ 100 mls/hr IV.SIG Q6H [facility] Last Infusion: 12/19/17 06:05 Dose: Infused Vancomycin HCl 1,000 mg/ (Sodium Chloride) 250 mls @ 250 mls/hr IV.SIG Q8H [facility] Last Infusion: 12/19/17 00:43 Dose: Infused Ketorolac Tromethamine (Toradol Inj) 15 mg IV.PUSH Q6H [facility] Stop: 12/23/17 14:29 Last Admin: 12/19/17 01:41 Dose: 15 mg Lactulose (Lactulose Liq) 30 ml PO DAILY PRN PRN Reason: SEVERE CONSITIPATION Miscellaneous Information ([facility] Ordered Lab Info) 0 each OTHER ONCE ONE Stop: 12/19/17 07:46 Ondansetron HCl (Zofran Inj) 4 mg IV.PUSH Q6H PRN PRN Reason: NAUSEA OR VOMITING Senna/Docusate Sodium (Tova-Colace) 1 tab PO BID [facility] Last Admin: 12/18/17 21:43 Dose: Not Given Sennosides (Senokot) 17.2 mg PO Q12H PRN PRN Reason: Moderate Constipation Temazepam (Restoril) 15 mg PO HS PRN PRN Reason: INSOMNIA Allergies Allergy/AdvReac Type Severity Reaction Status Date / Time No Known Allergies Allergy Verified 12/18/17 03:26 Home Medications Medication Instructions Recorded Confirmed Type cephalexin [Keflex] 750 mg PO BID 12/18/17 12/18/17 History Exam Vital signs: Vital Signs 12/18/17 08:00 12/18/17 12:00 12/18/17 14:00 Temperature 98.7 F 98.2 F Pulse Rate 80 61 67 Respiratory Rate 16 16 Blood Pressure 113/55 L 99/50 L Pulse Oximetry 98 97 12/18/17 15:43 12/18/17 16:00 12/18/17 20:00 Temperature 98.7 F 98.3 F Pulse Rate 80 65 Respiratory Rate 16 16 16 Blood Pressure 123/56 L 102/57 L Pulse Oximetry 99 99 12/19/17 00:00 12/19/17 03:58 12/19/17 04:00 Temperature 98.5 F 97.8 F Pulse Rate 78 58 L 52 L Respiratory Rate 16 16 Blood Pressure 118/56 L 109/56 L Pulse Oximetry 98 100 Intake & Output 12/18/17 12/19/17 12/19/17 18:59 06:59 18:59 Intake Total 1600 / 1600 1795 / 1795 Output Total 1350 / 1350 Balance 1600 / 1600 445 / 445 Weight 58.9 kg Intake: IV 1600 / 1600 1075 / 1075 NS Inj 1,000 ML @ 100 mls/hr IV 1000 / 1000 725 / 725 .CONT .Q10H [facility] Rx#:[id number] Zosyn 3.375 GM Premix 50 ML @ 100 / 100 100 / 100 100 mls/hr IV.SIG Q6H [facility] Rx#: [id number] Vancomycin Inj 1,000 MG In NS 500 / 500 250 / 250 Inj 250 ML @ 250 mls/hr IV.SIG Q8H [facility] Rx#:[id number] Oral 720 / 720 Output: Urine 1350 / 1350 Other: Date of Last Bowel Movement 12/17/17 Weight On Admission 58.9 kg Narrative: Awake, alert, no acute distress Normocephalic Pupils equal No JVD Moist mucous members Soft nontender abdomen Regular rate Nonlabored respirations Right lower extremity: Small incision over anterior knee small amount of skin sloughing. There is mild edema and erythema around the knee with no palpable joint effusion. Patient has full active range of motion without significant discomfort. Patient is neurovascularly intact distally. Brisk cap refill. Bilateral upper extremities and left lower extremity: No tenderness to palpation or visible deformities. No signs of infection. Active range of motion and strength throughout. Sensation intact. Brisk cap refill. No rash Normal affect Results - Labs Result Diagrams: 12/19/17 06:30 12/18/17 05:20 Labs: Laboratory Results - last 24 hr 12/19/17 06:30 WBC 4.9 RBC 4.38 L Hgb 12.0 L Hct 36.6 L MCV 83.4 MCH 27.3 MCHC 32.8 RDW 13.6 Plt Count 239 MPV 6.8 L Neut % (Auto) 42.8 Lymph % (Auto) 42.5 [place] % (Auto) 11.4 H Eos % (Auto) 2.3 Baso % (Auto) 1.0 Neut # (Auto) 2.1 Lymph # (Auto) 2.1 [place] # (Auto) 0.6 Eos # (Auto) 0.1 Baso # (Auto) 0.0 WBC Differential . Differential Comment Auto diff final - Diagnostic results Imaging: Impressions Knee MRI 12/18/17 00:00 CONCLUSION: 1. Diffuse nonspecific edema and soft tissue swelling around the knee joint. 2. Focal oval-shaped complex fluid collection in the lateral soft tissues of the knee measuring 4 cm x 1.4 cm suggestive of a soft tissue abscess. 3. No evidence to suggest any internal derangement. Assessment and Plan - Assessment and Plan 32-year-old IVDU male, presents with several-day history of increasing anterior right knee pain and swelling status post I&D at [facility] ED with persistent swelling and pain MRI reviewed with the patient. He does have what appears to be subcutaneous abscess on the lateral aspect of his knee with very minimal joint effusion. Clinically, I do not appreciate any significant signs of septic arthritis. However, the abscess does not appear completely debrided from the emergency department's procedure. I discussed options of management including continued nonoperative care with IV antibiotics and close observation. I also discussed the option of surgical intervention the form of irrigation and debridement. Risks of surgery including but not limited to: Persistent infection, persistent knee pain and/or stiffness, neurovascular injury, possible need for further surgery, and other unforeseen occasions. At this time he is interested in pursuing surgical intervention and I believe this is very reasonable. Patient is nothing by mouth. We'll plan for surgery later today.
[2017-12-19] MEDS ORDERED: Pharmacy Ordered Lab Info OTHER ONE (07:45)
[2017-12-19] MEDS: Senna/Docusate Sodium 8.6/50 MG Tablet PO SCH ×2 (11:09→20:39)
--- NOTE | 2017-12-19 11:17 | P.PN ---
Subjective Interval history: Follow-up for right anterior knee abscess, right facial temporal abscess, occipital scalp abscess. Patient reports continued mild improvement of his right knee erythema/edema overnight, however still can feel a fluid collection at the right anterior lateral knee. Reports continued purulent and bloody drainage from the right anterior knee abscess. Denies fevers or chills. He is concerned about the abscess that is occipital scalp that was previously drained , however he feels it is filling up with fluid again. Denies any drainage at the right temporal and occipital scalp abscesses. He denies any chest pain, palpitations, shortness of breath, or abdominal complaints. He is going for I& D of the right knee abscess today. Physical Exam Vital signs: Vital Signs 12/18/17 12:00 12/18/17 14:00 12/18/17 15:43 Temperature 98.2 F Pulse Rate 61 67 Respiratory Rate 16 16 Blood Pressure 99/50 L Pulse Oximetry 97 12/18/17 16:00 12/18/17 20:00 12/19/17 00:00 Temperature 98.7 F 98.3 F 98.5 F Pulse Rate 80 65 78 Respiratory Rate 16 16 16 Blood Pressure 123/56 L 102/57 L 118/56 L Pulse Oximetry 99 99 98 12/19/17 03:58 12/19/17 04:00 12/19/17 08:00 Temperature 97.8 F 97.7 F Pulse Rate 58 L 52 L 59 L Respiratory Rate 16 16 Blood Pressure 109/56 L 104/55 L Pulse Oximetry 100 99 Intake & Output 12/18/17 12/19/17 12/19/17 18:59 06:59 18:59 Intake Total 1600 / 1600 1795 / 1795 275 / 275 Output Total 1350 / 1350 Balance 1600 / 1600 445 / 445 275 / 275 Weight 58.9 kg Intake: IV 1600 / 1600 1075 / 1075 275 / 275 NS Inj 1,000 ML @ 100 mls/hr IV 1000 / 1000 725 / 725 275 / 275 .CONT .Q10H ISSA Rx#:[id number] Zosyn 3.375 GM Premix 50 ML @ 100 / 100 100 / 100 100 mls/hr IV.SIG Q6H ISSA Rx#: [id number] Vancomycin Inj 1,000 MG In NS 500 / 500 250 / 250 Inj 250 ML @ 250 mls/hr IV.SIG Q8H ISSA Rx#:[id number] Oral 720 / 720 Output: Urine 1350 / 1350 Other: Date of Last Bowel Movement 12/17/17 Weight On Admission 58.9 kg Narrative: GENERAL: Well-nourished, well-developed young male patient in [facility]. SKIN: Warm and dry. No rash. 1 abscess at the posterior occipital scalp that has scabbed over, no active drainage, and another abscess at the right temporal region noticed also with scab, minimal surrounding erythema, no fluctuance. HEENT: Normocephalic. Atraumatic. Pupils equal and round. Mucous membranes pink and moist. CARDIOVASCULAR: Regular rate and rhythm. No murmur appreciated. RESPIRATORY: No accessory muscle use. Clear to auscultation. Breath sounds equal bilaterally. GASTROINTESTINAL: Abdomen soft, non-tender, nondistended. Normoactive bowel sounds x4. MUSCULOSKELETAL: No obvious deformities. Extremities without clubbing, cyanosis , or edema. Right anterior knee with diffuse edema/erythema that extends from the distal thigh to the distal olson, with anterior knee abscess s/p I&D with packing in place. Full active ROM of the right knee. NEUROLOGICAL: Awake and alert. No obvious cranial nerve deficits. Motor grossly within normal limits. Moving all extremities spontaneously. Normal speech. PSYCHIATRIC: Appropriate mood and affect; insight and judgment normal. Results - Labs CBC & Chem 7: 12/19/17 06:30 12/19/17 06:30 Laboratory Results - last 24 hr 12/19/17 12/19/17 12/19/17 06:30 06:30 08:00 WBC 4.9 RBC 4.38 L Hgb 12.0 L Hct 36.6 L MCV 83.4 MCH 27.3 MCHC 32.8 RDW 13.6 Plt Count 239 MPV 6.8 L Neut % (Auto) 42.8 Lymph % (Auto) 42.5 [place] % (Auto) 11.4 H Eos % (Auto) 2.3 Baso % (Auto) 1.0 Neut # (Auto) 2.1 Lymph # (Auto) 2.1 [place] # (Auto) 0.6 Eos # (Auto) 0.1 Baso # (Auto) 0.0 WBC Differential . Differential Comment Auto diff final Sodium 139 Potassium 5.1 D Chloride 106 Carbon Dioxide 27.1 Anion Gap 6 BUN 11 Creatinine 0.94 Estimated GFR Greater than 89 Random Glucose 91 Calcium 8.3 L Vancomycin Trough 12.2 H Microbiology 12/18/17 05:20 Blood - Peripheral Aerobic Blood Culture - Preliminary No growth in 1 day 12/18/17 05:20 Blood - Peripheral Anaerobic Blood Culture - Preliminary No growth in 1 day 12/18/17 05:15 Blood - Peripheral Aerobic Blood Culture - Preliminary No growth in 1 day 12/18/17 05:15 Blood - Peripheral Anaerobic Blood Culture - Preliminary No growth in 1 day 12/18/17 06:40 Abscess - Knee Gram Stain - Final - Imaging Impressions Knee MRI 12/18/17 00:00 CONCLUSION: 1. Diffuse nonspecific edema and soft tissue swelling around the knee joint. 2. Focal oval-shaped complex fluid collection in the lateral soft tissues of the knee measuring 4 cm x 1.4 cm suggestive of a soft tissue abscess. 3. No evidence to suggest any internal derangement. Assessment and Plan - Plan 32-year-old male with history of polysubstance use, IVDU, MRSA, presents with complaints of multiple abscesses, worse at the right anterior knee. Right Anterior Knee Abscess and Face/Scalp Abscess: Acute. Symptoms 4 days. Afebrile, no leukocytosis. Failed Outpatient treatment with Keflex. -S/p I&D in the ER 12/18, with packing in place. -Wound culture with MRSA -Blood cultures with NGTD -Continue antibiotics with IV vancomycin with pharmacy consult -Pain control with Tylenol, [place] prn -Give IV Toradol for inflammation -Right knee MRI shows focal oval-shaped complex fluid collection in the lateral soft tissues of the knee measuring 4 cm x 1.4 cm suggestive of a soft tissue abscess. Diffuse nonspecific edema and soft tissue swelling around the knee joint. -Wound care ordered for daily packing exchanges -Consulted orthopedics, plans for I&D in the OR today -Checking U/S of occipital scalp abscess to eval for any drainable fluid collection Polysubstance abuse: Acute. Patient denies IVDU 7 months however still smokes marijuana/methamphetamines -Counseled on cessation Tobacco Use: chronic -counseled on cessation -patient declining nicotine patch DVT Prophylaxis: teds/SCDs to the LLE only
[2017-12-19] MEDS: Vancomycin Inj 1,000 MG in Sodium Chlor 0.9% Inj 250 ML IV.SIG SCH ×2 (11:23→17:03)
[2017-12-19] MEDS ORDERED: Lidocaine PF 1% Inj 5 ML Syringe INFILTRATN ONE (12:00)
[2017-12-19] MEDS ORDERED: Phenylephrine/NS 1000 MCG/10ML Syringe IV.PUSH ONE (12:00)
--- NOTE | 2017-12-19 18:40 | P.BOP ---
Date of procedure: 12/19/17 Procedure: I&D with excisional debridement of right knee abscess Anesthesia: GETA Surgeon: Dariana Ball MD Estimated blood loss (mL): 50 Pathology: other (culture to micro) Condition: stable Disposition: PACU
[2017-12-19] MEDS ORDERED: Post-op Orders (for Pharmacy) OTHER STA (18:55)
[2017-12-19] MEDS ORDERED: Morphine Inj 4 MG/ML Vial ONE (19:10)
[2017-12-19] MEDS ORDERED: fentaNYL Citrate Inj 100 MCG/2 ML Ampul ONE (19:10)
[2017-12-19] MEDS ORDERED: *morphine SULFATE 10 MG/ML PERIprocedure ONLY ONE (19:14)
[2017-12-19] MEDS ORDERED: *HYDROmorphone PF Inj 1 MG/ML Ampul PERIprocedural Use ONLY ONE ×2 (19:19→19:28)
[2017-12-20] MEDS: Ketorolac Inj 30 MG/ML (IVP) Vial IV.PUSH SCH ×4 (02:42→21:14)
[2017-12-20] MEDS: Vancomycin Inj 1,000 MG in Sodium Chlor 0.9% Inj 250 ML IV.SIG SCH ×4 (02:45→23:47)
[2017-12-20] MEDS: Senna/Docusate Sodium 8.6/50 MG Tablet PO SCH ×2 (09:24→21:16)
--- NOTE | 2017-12-20 10:25 | US ---
EXAM DATE: 12/20/2017 9:34 AM EDT AGE/SEX: 32 years / Male INDICATIONS: Posterior skull swelling. CLINICAL DATA: This is the patient's initial encounter. Patient reports that signs and symptoms have been present for 2 days and indicates a pain score of 4/10. MEDICAL/SURGICAL HISTORY: . Redness and swelling in occipital scalp. Left finger trauma. . Rig ht knee incision and drainage. COMPARISON: No prior exams available for comparison. FINDINGS: Complex, 2.9 x 2.8 x 1.1 cm area in the subcutaneous tissues in the region of the occiput, just right of midline.. There is some edema and hyperemia in the surrounding tissues but no vascularity central ly. CONCLUSION: 1. Complex, 2.9 x 2.8 x 1.1 cm area in the occiput, right para midline. Adjacent soft tissue edema a nd hyperemia. 2. Diagnostic considerations include hematoma or abscess. Please correlate with clinical presentatio n. Electronically signed by: Matteo Devries MD 12/20/2017 10:24 AM EDT
--- NOTE | 2017-12-20 10:53 | P.PNIM ---
Subjective Interval history: Reports increasing swelling over the posterior scalp area. Reports his knee pain is much better after the surgery. No other concerns. No fevers and chills. Physical Exam Vital signs: Vital Signs 12/19/17 10:55 12/19/17 12:00 12/19/17 16:00 Temperature 98.0 F 97.9 F Pulse Rate 55 L 58 L 66 Respiratory Rate 16 16 Blood Pressure 98/51 L 106/61 Pulse Oximetry 99 12/19/17 18:54 12/19/17 19:15 12/19/17 19:30 Temperature 97.3 F L Pulse Rate 63 60 70 Respiratory Rate 25 H 16 16 Blood Pressure 136/72 129/70 154/85 H Pulse Oximetry 100 100 100 12/19/17 19:45 12/19/17 20:00 12/19/17 20:03 Temperature 97.5 F L Pulse Rate 59 L 62 62 Respiratory Rate 10 L 12 Blood Pressure 134/71 121/76 Pulse Oximetry 97 97 12/19/17 20:39 12/20/17 04:00 12/20/17 05:58 Temperature 97.8 F 98.6 F Pulse Rate 61 66 62 Respiratory Rate 16 16 Blood Pressure 122/68 117/60 Pulse Oximetry 97 98 12/20/17 08:00 Temperature 98.4 F Pulse Rate 72 Respiratory Rate 16 Blood Pressure 109/51 L Pulse Oximetry 100 Intake & Output 12/19/17 12/20/17 12/20/17 18:59 06:59 18:59 Intake Total 1325 / 1325 1500 / 1500 Output Total 50 / 50 Balance 1275 / 1275 1500 / 1500 Intake: IV 575 / 575 1500 / 1500 NS Inj 1,000 ML @ 100 mls/hr IV 275 / 275 1000 / 1000 .CONT .Q10H ISSA Rx#:[id number] Zosyn 3.375 GM Premix 50 ML @ 50 / 50 100 mls/hr IV.SIG Q6H ISSA Rx#: [id number] Vancomycin Inj 1,000 MG In NS 250 / 250 500 / 500 Inj 250 ML @ 250 mls/hr IV.SIG Q8H ISSA Rx#:[id number] Anesthesia Amount 750 / 750 Output: Estimated Blood Loss 50 / 50 Other: Date of Last Bowel Movement 12/17/17 Narrative: GENERAL: This is a well-nourished, well-developed patient, in no apparent distress. HEENT: Posterior scalp showed an area of swelling elevation with fluctuance with some serosanguineous minimum drainage CARDIOVASCULAR: Regular rate and rhythm . RESPIRATORY: Clear to auscultation. Breath sounds equal bilaterally. No wheezes , rales, or rhonchi. GASTROINTESTINAL: Abdomen soft, non-tender, nondistended. Normal active bowel sounds MUSCULOSKELETAL: Right knee bandage clean dry intact Jeov[place] bandage in place. NEURO: Alert & Oriented x4 to person, place, time, situation. Moves all ext x4 Results - Labs CBC & Chem 7: 12/19/17 06:30 12/19/17 06:30 Microbiology 12/18/17 06:40 Abscess - Knee Gram Stain - Final 12/18/17 06:40 Abscess - Knee Wound Culture - Preliminary S. aureus MRSA 12/19/17 18:25 Abscess - Knee Fungal Smear - Final No fungal elements seen 12/19/17 18:25 Abscess - Knee Gram Stain - Final 12/18/17 05:20 Blood - Peripheral Aerobic Blood Culture - Preliminary No growth in 1 day 12/18/17 05:20 Blood - Peripheral Anaerobic Blood Culture - Preliminary No growth in 1 day 12/18/17 05:15 Blood - Peripheral Aerobic Blood Culture - Preliminary No growth in 1 day 12/18/17 05:15 Blood - Peripheral Anaerobic Blood Culture - Preliminary No growth in 1 day - Imaging Impressions Neck Ultrasound 12/20/17 00:00 CONCLUSION: 1. Complex, 2.9 x 2.8 x 1.1 cm area in the occiput, right para midline. Adjacent soft tissue edema and hyperemia. 2. Diagnostic considerations include hematoma or abscess. Please correlate with clinical presentation. Assessment and Plan - Plan 32-year-old male with history of polysubstance use, IVDU, MRSA, presents with complaints of multiple abscesses, worse at the right anterior knee. Right Anterior Knee Abscess and Face/Scalp Abscess: Acute. Symptoms 4 days. Afebrile, no leukocytosis. Failed Outpatient treatment with Keflex. -S/p I&D in the ER 12/18, with packing in place. Status post operative day # 1 I&D with orthopedics surgeoncontinue postoperative care pain control -Wound culture with MRSA, await final sensitivity -Blood cultures with NGTD -Continue antibiotics with IV vancomycin with pharmacy consult -Pain control with Tylenol, [place] prn -Give IV Toradol for inflammation -Right knee MRI shows focal oval-shaped complex fluid collection in the lateral soft tissues of the knee measuring 4 cm x 1.4 cm suggestive of a soft tissue abscess. Diffuse nonspecific edema and soft tissue swelling around the knee joint. -Wound care ordered for daily packing exchanges Posterior occipital scalp abscess - U/S of occipital scalp abscess which showed drainable fluid collection - consult general surgery to evaluate for bedside I&D, n.p.o. until evaluation Polysubstance abuse: Acute. Patient denies IVDU 7 months however still smokes marijuana/methamphetamines -Counseled on cessation Tobacco Use: chronic -counseled on cessation -patient declining nicotine patch DVT Prophylaxis: teds/SCDs to the LLE only
--- NOTE | 2017-12-20 12:41 | MB ---
cc: Mansoor Baldwin MD, Joseph D MD DATE: 12/20/2017 REASON FOR CONSULTATION: Scalp abscess. HISTORY OF PRESENT ILLNESS: This is a pleasant gentleman who was recently admitted to the hospital. He had an abscess in his right knee that required surgical intervention by the orthopedic surgeon. This morning they noticed a draining abscess to the posterior scalp. The patient has been pressing on and got some fluid and a little blood out. He says it feels better. He had one on the side of his face last week and he did a similar thing and that resolved. Surgery is asked for an opinion. He says it hurts, but it is hurting less. He thinks it is getting better since he has been in the hospital. PAST MEDICAL HISTORY: He had these abscesses. No real chronic medical issues. ALLERGIES: No allergies. SOCIAL HISTORY: He does smoke. He has numerous tattoos. PHYSICAL EXAMINATION: He is a well-developed gentleman, thin. He has got a bandage on his right leg from his recent surgery. The posterior scalp and near the nape of the neck he has about a 5 mm opening with some serosanguineous drainage. Slightly tender with minimal erythema. He has a healing wound to the right side of his face. He has numerous tests tattoos on his chest. NECK: Supple. LUNGS: Clear. HEART: Regular rate. ABDOMEN: Negative. EXTREMITIES: Moves all extremities well. His right knee is bandaged up. LABORATORY DATA: A couple days ago his white count was 9.7. H and H otherwise normal. DIAGNOSTIC DATA: Imaging is reviewed. ASSESSMENT AND PLAN: A small contained draining abscess. This was previously drained in the emergency room. I think it is adequately drained at this time. I think the antibiotics that he is receiving should resolve this. He is n.p.o. I have given him a regular diet. Instructed through the computer and nursing staff. He can take a shower, wash his hair, which will help drain and treat this. Mansoor Baldwin MD JDB/ , 12:12 PM , 12:21 PM
[2017-12-21] MEDS: Ketorolac Inj 30 MG/ML (IVP) Vial IV.PUSH SCH ×3 (02:54→14:56)
[2017-12-21 05:07] LABS: Glomerular Filtration Rate Greater Than 89 mL/min (>89)
[2017-12-21] MEDS: Sod Chloride 0.9% Inj 1,000 ML IV.CONT SCH (06:26)
[2017-12-21] MEDS ORDERED: Pharmacy Ordered Lab Info OTHER ONE (07:45)
--- NOTE | 2017-12-21 08:49 | P.DS ---
Date of admission: 12/18/17 06:38 Primary care physician: No Primary Care Physician Anticipated date of discharge: 12/21/17 Brief History from admission: 32-year-old male with history of polysubstance use, IVDU, MRSA, presents with complaints of multiple abscesses, worse at the right anterior knee. Patient reports 4 days ago he started to notice right anterior knee swelling with overlying erythema. He states yesterday it became increasingly more painful and swollen therefore he decided to be sent to the ER. He denies any difficulty bending the right knee, however states it is painful to ambulate. He reports subjective fevers, however no documented fevers since his arrival. He recently had a abscess on the back of his scalp, status post I&D at [facility], and was given Keflex antibiotics. He reports compliance with the antibiotics, however symptoms continued to worsen. The patient states he has not injected drugs in the past 7 months, however does admit to smoking marijuana and occasional methamphetamine. He denies any other medical complaints including no chest pain, shortness of breath, abdominal pain, nausea/ vomiting, or diarrhea. DS: Diagnosis - Discharge Diagnosis (1) Abscess Status: Acute Diagnosis: Principal (2) Cellulitis Status: Resolved Diagnosis: Principal DS: Medications - Discharge Medications Prescriptions: hydrocodone-acetaminophen 1 tab PO Q6H PRN #18 tab PRN Reason: Acute Pain DS: Summary Hospital Course: These are the medical issues addressed during this hospitalization: 32-year-old male with history of polysubstance use, IVDU, MRSA, presents with complaints of multiple abscesses, worse at the right anterior knee. Right Anterior Knee Abscess and Face/Scalp Abscess: Acute. Symptoms 4 days. Afebrile, no leukocytosis. Failed Outpatient treatment with Keflex. -S/p I&D in the ER 12/18, with packing in place. Status post operative day # 2 I&D (12/19) with orthopedics surgeoncontinue postoperative care pain control -Wound culture with MRSA -Blood cultures with NGTD -Continue antibiotics with IV vancomycin with pharmacy consult and switch to oral Bactrim due to MRSA in the wound -Pain control with Tylenol, [place] prn -Give IV Toradol for inflammation -Right knee MRI shows focal oval-shaped complex fluid collection in the lateral soft tissues of the knee measuring 4 cm x 1.4 cm suggestive of a soft tissue abscess. Diffuse nonspecific edema and soft tissue swelling around the knee joint. -Wound care ordered for daily packing exchanges Posterior occipital scalp abscessprevious [facility] and active drainage - U/S of occipital scalp abscess which showed drainable fluid collection - status post evaluation with general surgery who recommended no further intervention and recommended continue shower and local wound care. Polysubstance abuse: Acute. Patient denies IVDU 7 months however still smokes marijuana/methamphetamines -Counseled on cessation Tobacco Use: chronic -counseled on cessation -patient declining nicotine patch DVT Prophylaxis: teds/SCDs to the E only [place] Prescription Drug Monitoring Database has been queried and verified prior to prescribing the controlled subsection. Patient is having significant pain caused by infection which will last more than 3 days. Trial of alternative treatment options other than prescribed opioids has not helped. I believe that it is medically necessary to treat the patients pain because it is affecting patients ability to walk. - Time Spent with Patient Total time spent providing and/or coordinating discharge services: Less than 30 minutes - Quality: VTE Deep Vein Thrombosis/Pulmonary Embolism Present on Admission: No Exam Vital signs: Vital Signs 12/20/17 12:00 12/20/17 16:00 12/20/17 20:00 Temperature 98.9 F 97.8 F 97.7 F Pulse Rate 66 71 61 Respiratory Rate 16 16 16 Blood Pressure 117/70 101/57 L 114/52 L Pulse Oximetry 99 98 98 12/21/17 00:00 12/21/17 04:00 Temperature 98.1 F 97.8 F Pulse Rate 67 60 Respiratory Rate 16 18 Blood Pressure 99/48 L 116/57 L Pulse Oximetry 97 98 Intake & Output 12/20/17 12/21/17 12/21/17 18:59 06:59 18:59 Intake Total 1110 / 1110 250 / 250 Output Total 300 / 300 Balance 1110 / 1110 -50 / -50 Weight 59.5 kg Intake: IV 510 / 510 250 / 250 NS Inj 1,000 ML @ 100 mls/hr IV 0 / 0 .CONT .Q10H ISSA Rx#:[id number] Vancomycin Inj 1,000 MG In NS 510 / 510 250 / 250 Inj 250 ML @ 250 mls/hr IV.SIG Q8H ISSA Rx#:[id number] Oral 600 / 600 Output: Urine 300 / 300 Other: # Voids 2 2 Narrative: GENERAL: This is a well-nourished, well-developed patient, in no apparent distress. SKIN: Scalp lesion draining CARDIOVASCULAR: Regular rate and rhythm without murmurs, gallops, or rubs. RESPIRATORY: Clear to auscultation. Breath sounds equal bilaterally. No wheezes , rales, or rhonchi. GASTROINTESTINAL: Abdomen soft, non-tender, nondistended. Normal active bowel sounds MUSCULOSKELETAL: Right knee bandage clean dry intact [place] in place with serosanguinous drainage NEURO: Alert & Oriented x4 to person, place, time, situation. Moves all ext x4 Results Procedures completed during hospitalization: 12/19 right knee incision and drainage Labs on day of discharge: Labs from last 24 hours 12/21/17 12/21/17 04:04 04:04 Creatinine 0.86 Estimated GFR Greater than 89 Vancomycin Trough 19.5 H Preliminary micro results at discharge 12/19/17 18:25 Wound Culture - Preliminary Abscess - Knee S. aureus MRSA 12/18/17 05:20 Aerobic Blood Culture - Preliminary Blood - Peripheral No growth in 2 days Anaerobic Blood Culture - Preliminary No growth in 2 days 12/18/17 05:15 Aerobic Blood Culture - Preliminary Blood - Peripheral No growth in 2 days Anaerobic Blood Culture - Preliminary No growth in 2 days - Impressions ITS Impressions Knee MRI 12/18/17 00:00 CONCLUSION: 1. Diffuse nonspecific edema and soft tissue swelling around the knee joint. 2. Focal oval-shaped complex fluid collection in the lateral soft tissues of the knee measuring 4 cm x 1.4 cm suggestive of a soft tissue abscess. 3. No evidence to suggest any internal derangement. Neck Ultrasound 12/20/17 00:00 CONCLUSION: 1. Complex, 2.9 x 2.8 x 1.1 cm area in the occiput, right para midline. Adjacent soft tissue edema and hyperemia. 2. Diagnostic considerations include hematoma or abscess. Please correlate with clinical presentation. Discharge Plan - Discharge Disposition Patient Disposition: 01 Discharge Home - Discharge Condition Condition: Stable - Discharge Order Discharge Orders: Discharge Order (Routine); Ordered 12/21/17 Ordered By: Sunita Francisco - Discharge Details Anticipated Discharge Date: 12/21/17 - Physicians Team Primary Care Provider: Primary Care Dianna Daniels Attending Provider: Sunita Francisco Other Providers: Dariana Ball MD ; Mansoor Baldwin MD
[2017-12-21] MEDS: Vancomycin Inj 1,000 MG in Sodium Chlor 0.9% Inj 250 ML IV.SIG SCH (09:18)
[2017-12-21] MEDS: Senna/Docusate Sodium 8.6/50 MG Tablet PO SCH (12:42)
--- NOTE | 2018-01-05 12:31 | P.OP ---
Date of procedure: 12/19/17 Procedure: Irrigation and excisional debridement of right knee abscess Implants: None Surgeon: Dariana Ball MD Estimated blood loss (mL): 50 Pathology: other (Culture sent to microbiology) Operation and Findings: Indications for procedure: Patient is a 32-year-old gentleman who presented to the emergency department with increasing right knee pain and swelling. Patient was found to have an abscess around the anterior lateral aspect of his knee without evidence of septic arthritis. Patient underwent I&D in the emergency department at outside hospital with progressive symptoms and presented to [place] ED. MRI demonstrated large fluid collection superficial to the knee joint. Options of management were discussed with the patient including continued nonoperative care with antibiotics and observation versus operative irrigation and debridement. Patient wished to undergo surgical debridement. Description of procedure: Patient was brought back to the operating room and placed supine on operating room table with all bony prominences well-padded. General anesthesia then ensued. A tourniquet was placed on the upper right thigh and patient was prepped and draped in standard sterile fashion. Timeout was performed to identify the correct patient, side, site and procedure to be performed. Preoperative antibiotics were held in order to obtain intraoperative culture. At this time, the previous incision from the emergency department was identified over the lateral aspect of the knee and was enlarged to extend further laterally. Sharp dissection was carried out through the skin is obtain his tissue. Immediately a large pocket of fluid including what appeared to be hematoma and some purulence was encountered. This was cultured. There is no evidence of penetration of the joint capsule. This abscess pocket was excisionally debrided with rongeurs, curettes and scalpel. This was performed back to healthy bleeding tissue. This was thoroughly irrigated with over 6 L of normal saline laden with gentamicin. A [place] drain was placed into this pocket and the subcutaneous tissue closed with PDS sutures and the skin closed with nylon. Sterile dressings were then applied. Patient was awoke from general anesthesia without complication. Disposition: Patient was instructed he could be weightbearing as tolerated and range of motion as tolerated to the right lower extremity. Plan to remove the [place] drain and change the dressing on postop day 2.
== END 2017-12-21 17:58 | disposition home or self-care (01) ==
LOC: NEPD 03:18 → NEDA 06:38 → NEPFCDU 08:30 → N05 12-19 18:37
PROVIDERS: ADMIT Family Medicine; ATTEND Family Medicine